=== PATIENT | male | born 1945 | race Caucasian/White ===

== ENCOUNTER 2024-02-08 13:41 | Inpatient (IN) | payer OTHER, SELFPAY ==
[2024-02-07 09:51] VITALS: BMI 24.0
[2024-02-07 10:16] VITALS: BP 154/92
--- NOTE | 2024-02-07 10:16 | ED.GENMED ---
ED Provider Triage
<Harriet Leonard PA-C - Last Filed: 02/07/24 10:30>
-
Patient seen by provider in Triage?: Seen in Triage
78 y/o M
lower back pain x 2 weeks after lifting something heavy
Patient says the pain does not radiate down his legs and is not having any red flag symptoms
went to
got prescription for steroids, sounds diamond dose yonis
took all 6 days and completed 5 days ago
started having some AMS - confusion, mixing up words, repetition, not making sense. He is never had the symptoms before. He has not had any dysuria or frequency or incontinence. Patient does admit to daily alcohol use, usually 3 or 4 glasses of
wine daily
he hsn't had much to drink because he hasn't felt up for it.
no abd pain,fever, vomiting, diarrhea, head injury, liver disesae
pt did have some word confusion and thinks it is march
A medical screening examination has been initiated by a qualified medical provider. Based on the assessment performed at this time, it has been determined that an emergent medical condition may exist and the patient has been informed that further
medical evaluation and possible additional diagnostic testing may be needed.
HPI: This is a medical evaluation conducted in person to initiate diagnostic evaluation and provide initial therapeutics. Please see further documentation by the treating clinician.
GENERAL: Alert , in no apparent distress
ENT: No visible abnormalities
LUNGS: No acute respiratory distress
NEUROLOGICAL: Alert and orientedx2 disoriented to time, ambulatory, no weakness, cranial nerves intact, no weakness
back: nontender
SKIN: Skin intact. No visible changes.
MUSCULOSKELETAL: Moving extremities normally
PSYCH: Normal and appropriate interaction.
alcohol use ,steroid use
low back pain which seems mild
will w/u for AMS
History of Present Illness
<Harriet Leonard PA-C - Last Filed: 02/07/24 10:30>
General
Chief Complaint: Back Pain
Time Seen by Provider: 02/07/24 12:01
<Rosanna Mistry NP - Last Filed: 02/07/24 15:56>
General
Source: patient and spouse
Exam Limitations: none
Nursing documentation reviewed up to this point in time: agreed with
History of Present Illness
History of Present Illness:
78 yo male here for left lower back pain and change in mental state.
L lower back pain started 8 days go, 2 days after carrying boxes of dirt up steps at home. Onset gradual. Worse with movements.
Went to for the back pain and given 6 day taper of Prednisone which he finished 4 days ago.
states he's been confused, saying nonsensical things since being on the Prednisone. ie: He kept telling her he has an appointment with Mikal and she states he doesn't know a Mikal. He does have something coming up with the guys but there is no
Mikal.
She asked him which airline his daughter was flying in on and he states '[place]' she said not what city is she flying into, what airline, again he said [place]. She states he just doesn't seem right.
Pt states he does not feel confused.
He has no weakness, CP, SOB, abd pain, headache, n/v/d/c.
Past History
<Harriet Leonard PA-C - Last Filed: 02/07/24 10:30>
Past History
ED Past Medical History: None
ED Past Surgical History: Tonsilectomy and Other (facial, hernia)
Social History
Tobacco: Non-smoker
Alcohol: Occasional
Drug: None
Personal:
Living: with family
<Rosanna Mistry COMMUNICATION ASSISTANT - Last Filed: 02/07/24 15:56>
Past History
ED Past Medical History: Hypercholesterolemia and Other (chronic dysphagia)
Review of Systems
<Rosanna V. Day, COMMUNICATION ASSISTANT - Last Filed: 02/07/24 15:56>
Review of Systems
Allergies reviewed?: Yes
All Other Systems: ROS reviewed and negative except as documented in HPI and ROS
Constitutional: Denies fever or fatigue
Respiratory: Denies trouble breathing
Cardiac: Denies chest pain
ABD/GI: Denies abdominal pain, nausea, vomiting, diarrhea, constipated or anorexia
: Denies dysuria, frequency or difficulty voiding
Musculoskeletal: Reports back pain (R lower back)
Skin: Reports no symptoms
Neurological: Denies dizzy, headache, weakness or numbness
Phy Exam
<Rosanna Mistry, COMMUNICATION ASSISTANT - Last Filed: 02/07/24 15:56>
Physical Exam
Physical Exam:
GENERAL: No acute distress. A&Ox3.
CONSTITUTIONAL: Afebrile.
EYES: PERRL, conjunctivae normal
Neck: Supple
ENMT: moist mucus membranes, Pharynx nl
RESPIRATORY: Regular respirations, nonlabored, lungs clear.
CARDIOVASCULAR: Regular rate and rhythm, no murmurs, no rubs.
GI: Soft, nontender, normal BS
MUSCULOSKELETAL: Immediately tender over left SI joint with palpation. Same pain with active L SLR but no pain with passive lifting. Moves with ease. Well perfused.
SKIN: Warm, dry, pink
PSYCH: Normal mood and affect. Well kept, interactive and appropriate
NEUROLOGIC: Awake, alert and oriented. Speech clear, CN 2-12 intact. Ambulates with steady gait. Finger to nose intact. No focal neurological deficits
Course
<Harriet Leonard PA-C - Last Filed: 02/07/24 10:30>
Orders/Labs/Results
Orders:
Orders
02/07/24 10:22
Electrocardiogram (*1) Stat
Reason for Study: Other
Other Reason for Exam: neuro symptoms
EKG- Treatment ONCE
02/07/24 10:23
CT Head W/o Iv Contrast Urgent
Comment:
Reason For Exam: ams since taking steroids
02/07/24 10:34
Ammonia Urgent
Complete Blood Count/With Diff Urgent
Comprehensive Metabolic Panel Urgent
Lipase Urgent
TSH Reflex To Free T4 Urgent
Vitamin B12 Urgent
Comment: TSH REFLEX & B12 ADDED ON BY FLOOR 2:30PM 02-07-24
02/07/24 11:31
Urinalysis Reflex To Culture Urgent
Date Specimen was Collected: 02/07/24
Time Specimen was Collected: 11:30
02/07/24 14:33
Add On- LAB Routine
Tests Added?: TSH w/Reflex; Vit B12
Aspirin Chewable [Low Strength Aspirin] 162 mg PO NOW STA
02/07/24 14:35
Admit/Transfer Patient As Directed
Co-Sign Provider:
Level of Care: Observation services
Assign to:: Telemetry
Physician / Group: Aida
Diagnosis: Confusion
Reason for Telemetry: CVA/TIA
Date to Stop Telemetry: 02/10/24
Time to Stop Telemetry: 11:00
PRN Pain Medication Management As Directed
May give lesser potent ordered pain med per pt: Yes
preference::
Protocol:: Medication orders for pain may be administered in a
manner that supports deferring to patient preference
when the pt is:
- Requesting an ordered lesser potent pain medication.
Least to most potent pain medications are defined
as: acetaminophen < NSAID < tramadol < opioids
(morphine, oxycodone, hydromorphone).
- Requesting a lesser dose of the same medication IF
ORDERED.
- Requesting a less intrusive route of administration
if both routes are prescribed by the provider (PO <
IV).
02/07/24 14:44
Code Status As Directed
Resuscitation Status: Do not resuscitate
Reached after discussion with pt or family/Healthcare POA: Yes
DNR Bracelet Application ONCE
02/10/24 11:00
DC Protocol for Telemetry ONCE
Abnormal Lab Results
02/07/24 02/07/24
10:34 11:31
MCH 31.6 H pg
(27.0-31.0)
Absolute Lymphs (auto) 1.1 L 10^3/uL
(1.2-3.4)
Neutrophils % 77.2 H %
(42.2-75.2)
Lymphocytes % 15.5 L %
(20.5-51.1)
Carbon Dioxide 21 L mmol/L
(22-30)
BUN 28 H mg/dl
(9-20)
Glucose 198 H mg/dl
(70-99)
Ammonia < 9 L umol/L
(9-30)
Urine Glucose 1+ A
(Negative)
02/07/24 10:34
02/07/24 10:34
Vital Signs
Initial and Last Documented VS:
Initial Vital Signs
Temp Pulse Resp BP Pulse Ox
98.2 F 86 16 154/92 98
02/07/24 10:16 02/07/24 10:16 02/07/24 10:16 02/07/24 10:16 02/07/24 10:16
Last Documented Vital Signs
Temp Pulse Resp BP Pulse Ox
98.2 F 74 22 133/78 99
02/07/24 10:16 02/07/24 12:00 02/07/24 12:00 02/07/24 12:00 02/07/24 12:00
<Rosanna Mistry, COMMUNICATION ASSISTANT - Last Filed: 02/07/24 15:56>
Orders/Labs/Results
Orders:
Orders
02/07/24 10:22
Electrocardiogram (*1) Stat
Reason for Study: Other
Other Reason for Exam: neuro symptoms
EKG- Treatment ONCE
02/07/24 10:23
CT Head W/o Iv Contrast Urgent
Comment:
Reason For Exam: ams since taking steroids
02/07/24 10:34
Ammonia Urgent
Complete Blood Count/With Diff Urgent
Comprehensive Metabolic Panel Urgent
Lipase Urgent
TSH Reflex To Free T4 Urgent
Vitamin B12 Urgent
Comment: TSH REFLEX & B12 ADDED ON BY FLOOR 2:30PM 02-07-24
02/07/24 11:31
Urinalysis Reflex To Culture Urgent
Date Specimen was Collected: 02/07/24
Time Specimen was Collected: 11:30
02/07/24 14:33
Add On- LAB Routine
Tests Added?: TSH w/Reflex; Vit B12
Aspirin Chewable [Low Strength Aspirin] 162 mg PO NOW STA
02/07/24 14:35
Admit/Transfer Patient As Directed
Co-Sign Provider:
Level of Care: Observation services
Assign to:: Telemetry
Physician / Group: Aida
Diagnosis: Confusion
Reason for Telemetry: CVA/TIA
Date to Stop Telemetry: 02/10/24
Time to Stop Telemetry: 11:00
PRN Pain Medication Management As Directed
May give lesser potent ordered pain med per pt: Yes
preference::
Protocol:: Medication orders for pain may be administered in a
manner that supports deferring to patient preference
when the pt is:
- Requesting an ordered lesser potent pain medication.
Least to most potent pain medications are defined
as: acetaminophen < NSAID < tramadol < opioids
(morphine, oxycodone, hydromorphone).
- Requesting a lesser dose of the same medication IF
ORDERED.
- Requesting a less intrusive route of administration
if both routes are prescribed by the provider (PO <
IV).
02/07/24 14:44
Code Status As Directed
Resuscitation Status: Do not resuscitate
Reached after discussion with pt or family/Healthcare POA: Yes
DNR Bracelet Application ONCE
02/10/24 11:00
DC Protocol for Telemetry ONCE
Abnormal Lab Results
02/07/24 02/07/24
10:34 11:31
MCH 31.6 H pg
(27.0-31.0)
Absolute Lymphs (auto) 1.1 L 10^3/uL
(1.2-3.4)
Neutrophils % 77.2 H %
(42.2-75.2)
Lymphocytes % 15.5 L %
(20.5-51.1)
Carbon Dioxide 21 L mmol/L
(22-30)
BUN 28 H mg/dl
(9-20)
Glucose 198 H mg/dl
(70-99)
Ammonia < 9 L umol/L
(9-30)
Urine Glucose 1+ A
(Negative)
02/07/24 10:34
02/07/24 10:34
Vital Signs
Initial and Last Documented VS:
Initial Vital Signs
Temp Pulse Resp BP Pulse Ox
98.2 F 86 16 154/92 98
02/07/24 10:16 02/07/24 10:16 02/07/24 10:16 02/07/24 10:16 02/07/24 10:16
Last Documented Vital Signs
Temp Pulse Resp BP Pulse Ox
98.2 F 74 22 133/78 99
02/07/24 10:16 02/07/24 12:00 02/07/24 12:00 02/07/24 12:00 02/07/24 12:00
<Rosanna V. Day, COMMUNICATION ASSISTANT - Last Filed: 02/07/24 15:56>
MDM/Problems Addressed
Differential Diagnosis Includes:
Prednisone side effect, Cerebral infarct
MDM/Problems Addressed:
78 yo male here for left lower back pain and change in mental state.
L lower back pain started 8 days go, 2 days after carrying boxes of dirt up steps at home. Onset gradual. Worse with movements.
Went to for the back pain and given 6 day taper of Prednisone which he finished 4 days ago.
states he's been confused, saying nonsensical things since being on the Prednisone. ie: He kept telling her he has an appointment with Mikal and she states he doesn't know a Mikal. He does have something coming up with the guys but there is no
Mikal.
She asked him which airline his daughter was flying in on and he states '[place]' she said not what city is she flying into, what airline, again he said [place]. She states he just doesn't seem right.
Pt states he does not feel confused.
He has no weakness, CP, SOB, abd pain, headache, n/v/d/c.
Afebrile, NAD
Oriented x 3, no focal neuro deficits.
CBC normal CMP with no clinically significant abnormality
Head CT radiology report read: IMPRESSION:
Multiple regions of decreased density as described, the largest in the anterolateral left frontal lobe. The appearance is most suggestive of areas of old infarction. If there are any previous examinations that can be obtained, comparison to those
exams may be helpful.
If further imaging evaluation is desired, particularly for acute infarct, further evaluation with MRI of the brain could be considered.
No evidence for acute intracranial hemorrhage.
U/A neg
13:15
CT result reviewed with pt and . All questions answered. Recommend admit for Neuro eval and MRI.
Both agree.
Hospitalist notified of admission
<Rosanna Mistry, COMMUNICATION ASSISTANT - Last Filed: 02/07/24 15:56>
*Critical Care Note
Total Time (30-74mins, 75-104mins- exclusive of procedures): Not Applicable
ED Attending Note
<Harriet Leonard PA-C - Last Filed: 02/07/24 10:30>
-
Portions of this chart may have been created with voice recognition software.� Occasional wrong word or��sound alike� substitutions may have occurred due to the inherent limitations of voice recognition software.
Discharge Plan
Departure
Patient Disposition: Admit
Date of Disposition: 02/07/24
Time of Disposition: 13:32
Admit to: Med/Surg
Presentation/result/management discussed w/ accepting MD/DO: Hospitalist
Patient with high blood pressure during this ER visit?: No
Condition: Fair
Discharge Problem:
Sacroiliac (ligament) sprain, Altered mental state
Prescriptions:
No Action
atorvastatin 40 mg Tablet
40 mg PO HS
omeprazole 20 mg Capsule,Delayed Release(Dr/Ec)
20 mg PO DAILY
Referrals:
Son Carrillo MD [Family Provider] - Follow up in 10 days
Interventions
Interventions:
*Risk Screen - Suicide Last Done: 02/07/24 10:16
*General Assessment Last Done: 02/07/24 12:03
*Neglect/Abuse Screening Last Done: 02/07/24 10:16
ED- Fall Risk Assessment Last Done: 02/07/24 12:03
*ED COVID-19 Vaccine History Last Done: 02/07/24 12:03
ED-Musculoskeletal Assessment Last Done: 02/07/24 11:27
Discharge Date and Time
Print Language: BELARUSIAN
[2024-02-07 10:40] LABS: % Basophils 0.3 % (0-2); % Eosinophils 0.4 % (0-6); % Immature Granulocytes 0.4 % (0-0.5); % Lymphocytes 15.5 % (20.5-51.1); % Monocytes 6.2 % (1.7-9.3); % Neutrophils 77.2 % (42.2-75.2); Absolute Lymphocytes 1.1 10^3/uL (1.2-3.4); Absolute Monocytes 0.4 10^3/uL (0.1-0.6); Absolute Neutrophils 5.2 10^3/uL (1.4-6.5); Hematocrit 44.9 % (39.0-52.0); Hemoglobin 15.6 g/dL (13.0-18.0); Mean Corp Hgb Conc. 34.7 g/dL (33.0-37.0); Mean Corpuscular Hgb 31.6 pg (27.0-31.0); Mean Corpuscular Volume 90.9 fL (80.0-94.0); Mean Platelet Volume 9.1 fL (7.4-10.4); Nucleated Red Blood Cells % 0 % (-); Platelet Count 263 10^3/uL (130-400); Red Blood Cell Count 4.94 10^6/uL (4.70-6.10); Red Cell Dist. Width 12.8 % (11.5-14.5); White Blood Cell Count 6.8 10^3/uL (4.8-10.8)
[2024-02-07 10:52] LABS: Ammonia < 9 umol/L (9-30)
[2024-02-07 11:01] LABS: ALT (SGPT) 30 U/L (0-50); AST (SGOT) 26 U/L (17-59); Albumin 4.3 g/dl (3.5-5.0); Alkaline Phosphatase 82 U/L (38-126); Blood Urea Nitrogen 28 mg/dl (9-20); Calcium 9.3 mg/dl (8.4-10.2); Carbon Dioxide 21 mmol/L (22-30); Chloride 107 mmol/L (98-107); Glucose 198 mg/dl (70-99); Lipase 41 U/L (23-300); Sodium 139 mmol/L (135-145); Total Protein 7.2 g/dl (6.3-8.2); eGFR > 60.00
[2024-02-07 12:00] VITALS: BP 133/78
[2024-02-07 13:10] LABS: Urine Albumin Trace (Neg - Trace); Urine Bilirubin Negative (Negative); Urine Character Clear (Clear); Urine Color Yellow; Urine Glucose 1+ (Negative); Urine Ketone Negative (Negative); Urine Leukocyte Negative (Negative); Urine Nitrite Negative (Negative); Urine Occult Blood Negative (Negative); Urine Urobilinogen Negative (Neg - 1+)
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
--- NOTE | 2024-02-07 14:25 | W.PN.UPDATE ---
Update Note
Progress Note Update
This is an addendum to H&P written by SOTERO Young
I saw and examined the patient.
The FAREBOX REPAIRER's note was reviewed and I agree with the note.
Comment:
Mr. Jens Yung is a 78 yo man with hx HLD, GERD, recent steroid prescription for low back pain (completed 5 days ago) presents to the ER with confusion, and nonsensical sentences.
Triage VS: T 98.2, P 86, RR 16, BP 154/92, SpO2 98%
On exam patient is awake, AAO x 3 with mild difficulty answering questions. He denies feeling confused. MIKKI, EOMI, no facial asymmetry, 5/5 strength upper and lower extremities
LABS: WBC 6.8, Hg 15.6, PLT 263, Na 139, K+ 4.0, Cl 107, CO2 21, BUN 28, Cr 1.2, Glucose 198
CT Head:
IMPRESSION:
Multiple regions of decreased density as described, the largest in the anterolateral left frontal lobe. The appearance is most suggestive of areas of old infarction. If there are any previous examinations that can be obtained, comparison to those
exams may be helpful.
If further imaging evaluation is desired, particularly for acute infarct, further evaluation with MRI of the brain could be considered.
No evidence for acute intracranial hemorrhage.
Confusion
may be AE 2/2 steroid use versus new stroke
-admit patient to observation
-CVA work-up with MRI/MRA
-start asa
-continue CATERPILLAR DRIVER statin
-PT/OT/ST
GERD
-CATERPILLAR DRIVER PPI
Daily Alcohol Use
-2-3 glasses wine a day
-MSAS protocol
-IV Thiamine (patient states he eats well, not concerned for Wernicke's)
DVT PPx lovenox subQ
[2024-02-07] MEDS: LOW STRENGTH ASPIRIN 162 MG PO (14:39)
[2024-02-07 16:14] LABS: TSH Reflex To Free T4 4.55 uIU/ml (0.47-4.68)
[2024-02-07 16:33] LABS: Vitamin B12 288 pg/ml (239-931)
[2024-02-07 17:00] VITALS: BP 129/78
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
[2024-02-07 19:33] VITALS: BP 123/78
[2024-02-07 20:50] VITALS: BP 178/106; BMI 23.7
[2024-02-07] MEDS: LIDOCAINE 4% PATCH 1 PATCH TOPICAL (20:58)
[2024-02-07] MEDS: LIPITOR 40 MG PO (21:40)
[2024-02-07] MEDS: THIAMINE INJECTION 200 MG IV (22:56)
[2024-02-07 23:30] VITALS: BP 182/84
[2024-02-08] VITALS (8 sets, daily range): BP systolic 162–209; BP diastolic 75–101
--- NOTE | 2024-02-08 03:28 | DOWNTIME ---
There was a [employer] Downtime on 02/08/2024 from 0200 to 02/08/2024 at 0325 . Downtime documentation of patient's care, including medication administrations, has been reconciled in the electronic record per guidelines. Refer to the
patient's paper chart under the miscellaneous tab to see printed paper medication records and downtime forms.
--- NOTE | 2024-02-08 03:57 | PTCARENOTE ---
Pt received on unit approximately 2029. Pt able to walk from stretcher to bed with no concerns. AAOx3 no confusion noted. BP elevated SBP in 180s. AERONAUTICS COMMISSION DIRECTOR made aware. Pt on tele showing sinus tran. Pt oriented to room adn able to make needs known.
[2024-02-08 07:34] LABS: Hematocrit 41.6 % (39.0-52.0); Hemoglobin 14.2 g/dL (13.0-18.0); Mean Corp Hgb Conc. 34.1 g/dL (33.0-37.0); Mean Corpuscular Hgb 31.6 pg (27.0-31.0); Mean Corpuscular Volume 92.7 fL (80.0-94.0); Mean Platelet Volume 9.8 fL (7.4-10.4); Platelet Count 245 10^3/uL (130-400); Red Blood Cell Count 4.49 10^6/uL (4.70-6.10); Red Cell Dist. Width 12.7 % (11.5-14.5); White Blood Cell Count 6.1 10^3/uL (4.8-10.8)
[2024-02-08] MEDS: THIAMINE INJECTION 200 MG IV ×2 (07:47→19:13)
[2024-02-08] MEDS: LIDOCAINE 4% PATCH 1 PATCH TOPICAL (07:47)
[2024-02-08] MEDS: LOW STRENGTH ASPIRIN 81 MG PO (07:48)
[2024-02-08] MEDS: PROTONIX 40 MG PO (07:48)
[2024-02-08] MEDS: VITAMIN B-12 1000 MCG PO (07:48)
[2024-02-08] MEDS: FOLVITE 1 MG PO (07:48)
[2024-02-08 08:02] LABS: Blood Urea Nitrogen 24 mg/dl (9-20); Calcium 8.8 mg/dl (8.4-10.2); Carbon Dioxide 23 mmol/L (22-30); Chloride 109 mmol/L (98-107); Estimated Creatinine Clearance 59 ml/min; Glucose 118 mg/dl (70-99); HDL Cholesterol 50 mg/dl; LDL Cholesterol, Calculated 134 mg/dl; Magnesium 2.3 mg/dl (1.6-2.3); Sodium 139 mmol/L (135-145); Total Cholesterol 205 mg/dl (50-199); Triglyceride 105 mg/dl (10-149); Very Low Density Lipoprotein 21 mg/dl (0-30); eGFR > 60.00
--- NOTE | 2024-02-08 11:00 | W.PN.HOSP.TC ---
Today's Communication/Plan
-
see A/P
Assessment / Plan
Assessment / Plan
HPI: 78 y/o male past medical history of hyperlipidemia and GERD; who presented with back pain and confusion. Patient reports he injured his back about a week ago after lifting some boxes. He was seen at urgent care and started on a coarse of
steroids. Over the weekend, his family noted that he seemed more confused and sometimes wasn't making sense. Examples including putting something metal in the convection oven using the microwave setting, and talking about a meeting with someone they
don't know. Patient denies any similar episodes in the past. He denies any prior history of stroke.
A/P:
# Acute Delirium, possible acute metabolic encephalopathy related to steroids, MS back to baseline AOX3
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
Patient denies prior strokes, and denies any prior brain imaging
UA clean
Started aspirin
Check Brain MRI with Head/Neck MRA
LDL 134
Follow HgbA1c
neuro consulted
# Back Pain, likely muscle strain from lifting boxes
Consult PT/OT
Added Lidocaine Patch
# Hypertension urgency
start amlodipine 2.5 mg
IV hydralazine PRN
Monitor BP
# Hyperlipidemia
LDL 134
Continue atorvastatin
# GERD
Continue Protonix
DVT proph: SCDs
Code Status: DNR
updated on the phone
Anticipated Discharge: Within 24 hours
Subjective/Interval History
-
Date of Service: February 08, 2024
Objective Data
-
Labs:
Laboratory Results
02/08/24
06:32
WBC 6.1
Hgb 14.2
Hct 41.6
Plt Count 245
Sodium 139
Potassium 4.0
Chloride 109 H
Carbon Dioxide 23
BUN 24 H
Creatinine 1.1
Glucose 118 H
Calcium 8.8
Vital Signs:
Vital Signs
Temp Pulse Resp BP Pulse Ox
36.4 C 62 18 182/90 96
02/08/24 07:00 02/08/24 07:00 02/08/24 07:00 02/08/24 07:00 02/08/24 07:00
Review of Systems
-
All other systems: Reviewed and negative
Physical Exam
-
General: Well Developed, Well Nourished, No Apparent Distress, Comfortable and Conversant; Negative Respiratory Distress
HEENT: Normocephalic, Atraumatic, Nose Appears Normal and Ears Appear Normal; Negative Oxygen
Respiratory: Clear to Auscultation and Non Labored Respirations; Negative Accessory Resp Muscle Use
Cardiac: Regular Rhythm and S1/S2
GI: Soft, Nontender, Nondistended and Normal Bowel Sounds
Skin: Warm and Dry
Neuro: Awake, Alert, Oriented and AO x 3
Psych: Calm and Intact Judgement/Insight
Data Reviewed
-
CT Scan: Report Reviewed by me
Labs: Labs Reviewed by me
[2024-02-08 11:15] LABS: Glycohemoglobin (HgbA1c) 6.3 % (4.0-5.6)
[2024-02-08] MEDS: NORVASC 2.5 MG PO (11:34)
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
--- NOTE | 2024-02-08 13:36 | CM ---
Pt seen bedside w/ spouse. Initial assessment completed.
Pt lives w/ spouse in a 2STH- 10 steps to enter w/ landings splitting steps
Pt is independent, denies DME use for ambulation or daily functioning. Has walker but does not use it.
Denies SNF/VN/PT hx
Address, point of contact and insurance verified
PCP: Dr. Son Carrillo
Pharmacy: [facility]
Per PT/OT, no skilled needs likely
Awaiting brain MRI results
Pt admitted in OBS status. VEL[facility] form reviewed, pt given copy. Copy placed in chart.
Spouse had concerns as to why pt is not admitted as IP and requested for hospitalist to follow up w/ her. TT hospitalist, making aware of pt's spouse concerns.
Plan: Home; no needs
[2024-02-08] MEDS: LIPITOR 40 MG PO (21:38)
[2024-02-09 03:44] VITALS: BP 135/74
[2024-02-09 07:32] VITALS: BP 166/82
[2024-02-09] MEDS: FOLVITE 1 MG PO (08:36)
[2024-02-09] MEDS: VITAMIN B-12 1000 MCG PO (08:36)
[2024-02-09] MEDS: LOW STRENGTH ASPIRIN 81 MG PO (08:36)
[2024-02-09] MEDS: THIAMINE INJECTION 200 MG IV ×2 (08:37→19:22)
[2024-02-09] MEDS: NORVASC 2.5 MG PO (08:37)
[2024-02-09] MEDS: PROTONIX 40 MG PO (08:37)
[2024-02-09] MEDS: LIDOCAINE 4% PATCH 1 PATCH TOPICAL (08:38)
--- NOTE | 2024-02-09 10:20 | CM ---
Patient now INP and per physician pending MRI patient possible for discharge. CM will continue to follow for discharge planning needs.
Plan; home with no needs vs home with VN
[2024-02-09 11:18] VITALS: BP 172/90
--- NOTE | 2024-02-09 11:49 | W.PN.HOSP.TC ---
Today's Communication/Plan
-
see A/P
Assessment / Plan
Assessment / Plan
HPI: 78 y/o male past medical history of hyperlipidemia and GERD; who presented with back pain and confusion. Patient reports he injured his back about a week ago after lifting some boxes. He was seen at urgent care and started on a coarse of
steroids. Over the weekend, his family noted that he seemed more confused and sometimes wasn't making sense. Examples including putting something metal in the convection oven using the microwave setting, and talking about a meeting with someone they
don't know. Patient denies any similar episodes in the past. He denies any prior history of stroke.
A/P:
# Acute Delirium, possible acute metabolic encephalopathy 2/2 steroid and acute stroke
# Anterior/inferior left frontal lobe acute infarction
MRI brain noted hyperintense signal within the anterior/inferior left frontal lobe consistent with acute infarction. There is no evidence of hemorrhagic transformation.
Check MRA head and neck
Check echo
MS back to baseline AOX3
UA clean
Cont aspirin, added Plavix
LDL 134, increased Lipitor from 40 to 80 mg, informed about low choles diet
HgbA1c at 6.3%, informed about carb control diet
neuro on board
# Back Pain, likely muscle strain from lifting boxes
PT/OT cleared for HH
Added Lidocaine Patch
MR Lumbar spine without acute fracture, noted degenerative changes and mild canal stenosis
# Hypertension urgency
started amlodipine 2.5 mg
Monitor BP
# Hyperlipidemia
LDL 134
LDL 134, increased Lipitor from 40 to 80 mg
# GERD
Continue Protonix
DVT proph: SCDs
Code Status: DNR
updated at bedside. Answered all questions
total time spent 51 min
Anticipated Discharge: 24 - 48 hours
Subjective/Interval History
-
Date of Service: February 09, 2024
Objective Data
-
Vital Signs:
Vital Signs
Temp Pulse Resp BP Pulse Ox
36.8 C 70 20 172/90 96
02/09/24 11:18 02/09/24 11:18 02/09/24 11:18 02/09/24 11:18 02/09/24 11:18
I&O
02/08/24 02/09/24 02/10/24
06:59 06:59 06:59
Intake Total 960 / 960
Balance 960 / 960
Review of Systems
-
All other systems: Reviewed and negative
Physical Exam
-
General: Well Developed, Well Nourished, No Apparent Distress, Comfortable and Conversant; Negative Respiratory Distress
HEENT: Normocephalic, Atraumatic, Nose Appears Normal and Ears Appear Normal; Negative Oxygen
Respiratory: Clear to Auscultation and Non Labored Respirations; Negative Accessory Resp Muscle Use
Cardiac: Regular Rhythm and S1/S2
GI: Soft, Nontender, Nondistended and Normal Bowel Sounds
Skin: Warm and Dry
Neuro: Awake, Alert, Oriented and AO x 3
Psych: Calm and Intact Judgement/Insight
Data Reviewed
-
CT Scan: Report Reviewed by me
MRI: Report Reviewed by me, Discussed with Physician (neuro) and Discussed with Family
Labs: Labs Reviewed by me
[2024-02-09] MEDS: PLAVIX 75 MG PO (12:50)
[2024-02-09 15:27] VITALS: BP 179/87
--- NOTE | 2024-02-09 16:03 | PTOTSP ---
PARTS DEPARTMENT SUPERVISOR Evaluation
Quick Aphasia Battery Form 1 ([place]) completed. QAB overall = 8.60. Patient with at least mild mixed aphasia with deficits in sentence level auditory comprehension, word finding (semantic and phonemic paraphasias), and oral reading for tasks
assessed. Semantic and phonemic paraphasias/perseverations noted in conversation that patient was not consistently aware of or able to correct. Patient with decreased insight into deficits. Suspect cognitive linguistic impairments. Further
testing and education warranted.
Recommend:
1. Further speech/language/cognitive evaluation warranted at the acute care level.
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
[2024-02-09 20:03] VITALS: BP 168/96
[2024-02-09] MEDS: LIPITOR 80 MG PO (22:26)
[2024-02-09 23:11] VITALS: BP 163/78
[2024-02-10 02:58] VITALS: BP 172/77
[2024-02-10 07:00] VITALS: BP 163/89
[2024-02-10] MEDS: PROTONIX 40 MG PO (07:58)
[2024-02-10] MEDS: LOW STRENGTH ASPIRIN 81 MG PO (07:58)
[2024-02-10] MEDS: THIAMINE INJECTION 200 MG IV (07:59)
[2024-02-10] MEDS: VITAMIN B-12 1000 MCG PO (07:59)
[2024-02-10] MEDS: PLAVIX 75 MG PO (07:59)
[2024-02-10] MEDS: NORVASC 2.5 MG PO (08:00)
[2024-02-10] MEDS: FOLVITE 1 MG PO (08:01)
[2024-02-10] MEDS: LIDOCAINE 4% PATCH 1 PATCH TOPICAL (08:02)
--- NOTE | 2024-02-10 09:05 | CON.CAR ---
Consultation
Consultation Request
Date/Time Consultation Requested: 02/09/24 9:00pm
Date/Time Consultation Performed: 02/10/24 8:15 AM
Requesting Provider: Dr Walker
Performing Provider: Dr Webster
Reason for Consultation: CVA
Medical History
-
Chief Complaint: confusion
History of Present Illness:
78-year-old male with past medical history of hyperlipidemia and GERD presents with confusion and back pains. 1 week ago he injured his back and was started on a course of steroids. He then started noticing some confusion and was using words which
did not make sense. He denied any chest pains, shortness of breath, palpitations, orthopnea, PND, and edema. He was admitted to the hospital and further workup including MRI of the brain revealed acute embolic stroke to the anterior/inferior left
frontal lobe. His mental status improved and he is currently resting comfortable in bed. He denies any further symptoms and is oriented x 3. He was placed on aspirin and Plavix. Transthoracic echo was performed which was unremarkable. We are
asked to evaluate him for possible cardiac source of emboli. He has no fevers or chills. He has no coughing or wheezing.
Past Medical History
Past Medical History: GERD and Hypercholesterolemia
Past Surgical History: None
Social History
Tobacco: Non-Smoker
Alcohol: None
Drug: None
Personal:
Living: With Family
Employment: Retired
Family History
Family History: Hypertension
Allergies / Home Medications
Allergy/AdvReac Type Severity Reaction Status Date / Time
No Known Allergies Allergy Verified 02/07/24 10:20
�Medication �Instructions �Recorded �Confirmed �Type
atorvastatin 40 mg tablet 40 mg PO HS 02/07/24 02/07/24 History
omeprazole 20 mg capsule,delayed 20 mg PO DAILY 02/07/24 02/07/24 History
release
Review of Systems
-
History Source: Patient
Constitutional: No Symptoms
EENT: No Symptoms
Respiratory: No Symptoms
Cardiac: No Symptoms
Abdomen/GI: No Symptoms
: No Symptoms
Musculoskeletal: Muscle Pain
Skin: No Symptoms
Neurological: No Symptoms
Endocrine: No Symptoms
Hematologic/Lymphatic: No Symptoms
Physical Exam
Vital Signs
Temp Pulse Resp BP Pulse Ox
98.0 F 65 18 163/89 96
02/10/24 07:00 02/10/24 07:00 02/10/24 07:00 02/10/24 07:00 02/10/24 07:00
Lab Results
02/08/24 06:32
02/08/24 06:32
Physical Exam
General: Well Developed and Well Nourished
HEENT: Normocephalic and Anicteric
Respiratory: Non Labored Respirations
Cardiac: S1/S2 and Regular Rhythm
GI: Soft, Non Tender and Non Distended
Genito-urinary: No Costovertebral Tender
Musculoskeletal: No Edema
Skin: Warm and Dry
Neuro: AO x 3
Psych: Calm
Impression / Plan
-
Assess:
Acute frontal lobe CVA.
Confusion/change in mental status
Back pains
Hyperlipidemia
GERD
Echo January 2024, EF 56%, mild AI, no clear cardiac source of emboli.
MRI Brain 02/09/24: Restricted diffusion and associated T2/FLAIR hyperintense signal within the anterior/inferior left frontal lobe consistent with acute infarction. There is no evidence of hemorrhagic transformation.
MRA head and neck 02/09/24: short segment of high-grade stenosis in V3 of the left vertebral artery, no significant carotid stenosis
Plan:
He presents with an acute CVA possibly embolic. Transthoracic echo was overall unremarkable.
ekg monitor tech reveals no significant A-fib for now. I would start with a 14-day heart monitor to look for atrial fibrillation further.
At 78 years old, I will hold off on transesophageal echo for now. The likely utility of finding a left atrial appednage thrombus is low. He would not be a candidate for PFO closure based on his age.
Recommend continue aspirin and Plavix for now.
LDL is 134. Continue atorvastatin 80 mg daily.
Will arrange for follow-up after monitor to further discuss management.
Okay for discharge from cardiology.
Data Reviewed
-
EKG: Report Reviewed by me
Radiology: Report Reviewed by me
MRI: Report Reviewed by me
Medical Tests (Nuc Med, Echo etc): Report Reviewed by me
Labs: Labs Reviewed by me
Old Records: Reviewed
--- NOTE | 2024-02-10 10:09 | W.PN.HOSP.TC ---
Addendum entered and electronically signed by Sharron Morataya MD 02/10/24 14:18:
Total DC time 40 minutes
Original Note:
Today's Communication/Plan
-
see A/P
Assessment / Plan
Assessment / Plan
HPI: 78 y/o male past medical history of hyperlipidemia and GERD; who presented with back pain and confusion. Patient reports he injured his back about a week ago after lifting some boxes. He was seen at urgent care and started on a coarse of
steroids. Over the weekend, his family noted that he seemed more confused and sometimes wasn't making sense. Examples including putting something metal in the convection oven using the microwave setting, and talking about a meeting with someone they
don't know. Patient denies any similar episodes in the past. He denies any prior history of stroke.
A/P:
# Acute Delirium, acute metabolic encephalopathy 2/2 steroid and acute stroke (within the anterior/inferior left frontal lobe)
# Anterior/inferior left frontal lobe acute infarction
MRI brain noted hyperintense signal within the anterior/inferior left frontal lobe consistent with acute infarction. There is no evidence of hemorrhagic transformation.
MRA head noted likely mild stenosis within the distal left M1 segment. There is decreased vascular flow related enhancement along the anterior left sylvian fissure/lateral left frontal lobe which may be sequelae of distal vessel high-grade
stenosis/occlusion.
MRA neck noted short segment of high-grade stenosis within the V3 segment of the left vertebral artery.
Neuro felt stroke could be cardioembolic
Echo unrevealing: EF 56%. Normal diastolic function. No intracardiac mass or thrombus formation seen.
Card consulted, recc to start with 14-day heart monitor to look for atrial fibrillation. Can discuss MANDY outpt
Of note, pt's MS back to baseline AOX3
UA clean
Cont aspirin/Plavix 21 days, then ASA after that
LDL 134, increased Lipitor from 40 to 80 mg, informed about low choles diet
HgbA1c at 6.3%, informed about carb control diet
neuro on board
# Back Pain, likely muscle strain from lifting boxes
PT/OT cleared for HH
Added Lidocaine Patch
MR Lumbar spine without acute fracture, noted degenerative changes and mild canal stenosis
# Hypertension urgency
started amlodipine, can increase to 5 mg after discharge (has been on 2.5 during hospital stay)
Monitor BP
# Hyperlipidemia
LDL 134, increased Lipitor from 40 to 80 mg
# GERD
Continue Protonix
DVT proph: SCDs
Code Status: DNR
DW Card
DW on the phone. Answered all questions
Anticipated Discharge: Today
Subjective/Interval History
-
Date of Service: February 10, 2024
Objective Data
-
Vital Signs:
Vital Signs
Temp Pulse Resp BP Pulse Ox
36.7 C 65 18 163/89 96
02/10/24 07:00 02/10/24 07:00 02/10/24 07:00 02/10/24 07:00 02/10/24 07:00
I&O
02/09/24 02/10/24 02/11/24
06:59 06:59 06:59
Intake Total 960 / 960 1080 / 1080
Balance 960 / 960 1080 / 1080
Review of Systems
-
All other systems: Reviewed and negative
Physical Exam
-
General: Well Developed, Well Nourished, No Apparent Distress, Comfortable and Conversant; Negative Respiratory Distress
HEENT: Normocephalic, Atraumatic, Nose Appears Normal and Ears Appear Normal; Negative Oxygen
Respiratory: Clear to Auscultation and Non Labored Respirations; Negative Accessory Resp Muscle Use
Cardiac: Regular Rhythm and S1/S2
GI: Soft, Nontender, Nondistended and Normal Bowel Sounds
Skin: Warm and Dry
Neuro: Awake, Alert, Oriented and AO x 3
Psych: Calm and Intact Judgement/Insight
Data Reviewed
-
CT Scan: Report Reviewed by me
MRI: Report Reviewed by me, Discussed with Physician (neuro) and Discussed with Family
Labs: Labs Reviewed by me
--- NOTE | 2024-02-10 10:27 | PTOTSP ---
SPEECH THERAPY SWALLOW EVALUATION:
Patient exhibits grossly functional oropharyngeal swallow at this time. Patient with dysphagia risk factors of acute CVA and history of GERD. However, pt appears to be tolerating current diet without signs of dysphagia/aspiration at this time.
Recommend continue Regular texture diet, thin liquids. Medications as tolerated. General Aspiration and Reflux precautions. No skilled ST services for swallowing are indicated at this time. Continue ST for expressive/receptive language and cognitive
communication therapy.
RECOMMEND:
1) Regular texture diet, thin liquids
2) Medications as tolerated
3) General Aspiration and Reflux precautions
4) ST to follow for expressive/receptive language and cognitive communication therapy
[2024-02-10 10:32] VITALS: BP 197/94; PULSE 86
[2024-02-10] MEDS: APRESOLINE 10 MG IV (10:52)
[2024-02-10 11:00] VITALS: BP 162/86
[2024-02-10] MEDS: FLUAD (65 yr+) 2024-2025 FORMULA 0.5 ML IM (11:05)
--- NOTE | 2024-02-10 11:53 | CM ---
Chart reviewed and case preparer and liner met with patient and patient is for discharge to home today, patient declines the need for visiting nurses.
Plan; Home today no needs.
--- NOTE | 2024-02-10 13:52 | W.DCSUMMARY ---
Discharge Summary
Discharge Data
Date of Admission: 02/08/24
Date of Discharge: 02/10/24
-
Pending Results: No
Hospital Course
Principal Diagnosis:
Acute Delirium/acute metabolic encephalopathy due to steroid effect and acute stroke (anterior/inferior left frontal acute infarction)
Hypertension urgency
Prediabetes, hemoglobin A1c 6.3%
Back pain, likely from muscle strain from lifting boxes
Chronic Diagnoses:�
Hyperlipidemia
GERD
Consultations:�
Neurology
Cardiology
Procedures:�
None
Clinical course:�
This is a 78-year-old male with past medical history as stated above, who presented with back pain and confusion.
He apparently was lifting heavy boxes and likely injured his lower back as a result of this. He went to the urgent care and was started with a course of steroid for his back pain.
Over the week, he became more confused.
He presented to the emergency room for his confusion.
Problem 1:
Acute Delirium/acute metabolic encephalopathy due to steroid effect and acute stroke (anterior/inferior left frontal acute infarction).
His MRI brain noted hyperintense signal within the anterior/inferior left frontal lobe consistent with acute infarction. There is no evidence of hemorrhagic transformation.
His MRA head noted likely mild stenosis within the distal left M1 segment. There is decreased vascular flow related enhancement along the anterior left sylvian fissure/lateral left frontal lobe which may be sequelae of distal vessel high-grade
stenosis/occlusion.
His MRA neck noted short segment of high-grade stenosis within the V3 segment of the left vertebral artery.
According to neurology, this was felt likely to be cardioembolic.
His echo was unrevealing: EF 56%. Normal diastolic function. No intracardiac mass or thrombus formation seen.
Cardiology was consulted by neuro for MANDY evaluation. Per cardiology, he is high risk for MANDY.
Cardiology will help set up 14-day heart monitor to to assess for atrial fibrillation.
Of note, the patient's mental status has returned to baseline which is AOx3 while in the hospital.
He can continue with dual antiplatelet therapy aspirin and Plavix for 21 days, then aspirin after that.
As part of the stroke workup, his LDL was checked, which was high at 134.
His prior to admission Lipitor was increased from 40 to 80 mg, and he has been informed to continue with low-cholesterol diet going forward.
His HgbA1c was at 6.3%, which is indicative of prediabetes, and the patient has been informed about carb controlled diet.
Problem 2:
Hypertension urgency.
The patient was started with amlodipine this admission, and he can continue at 5 mg after discharge (he had been on 2.5 during hospital stay).
Problem 3:
Back pain, likely muscle strain from lifting boxes.
His MR Lumbar spine was without acute fracture, noted degenerative changes and mild canal stenosis.
As for the rest of his medical problems, they were stable during his hospital stay.
Discharge Plan
-
Patient Disposition: Home with Home Care
Discharge Diagnosis/Procedures: Acute Delirium due to steroid side effect and acute stroke (anterior/inferior left frontal lobe, MRA head noted likely mild stenosis within the distal left M1 segment, MRA neck noted short segment of high-grade
stenosis within the V3 segment of the left vertebral artery);
Mild back pain likely muscle strain from lifting boxes;
Hypertension urgency;
Hyperlipidemia (LDL 134);
Low B12 level (288);
Prediabetes (A1C at 6.3%)
Condition: Fair
Diet: As tolerated, Low Fat, Low Cholesterol and Low Sodium
Activity: As tolerated
Driving Restrictions: Not until seen by your Dr
Blood Work: HgA1C and LDL with PCP in 3 months
Activity Restrictions/Additional Instructions:
Follow up with cardiology for heart monitor to look for atrial fibrillation.
Follow up with your PCP for blood pressure monitor and better control
Referrals:
Keo Samuel MD [Active] - in one to two weeks
Nigel Webster MD [Active] - (The cardiology office will call you on Monday to schedule you to have the monitor placed and to follow up with cardiology team thereafter.)
Son Carrillo MD [Family Provider] - in less than 1 week
Additional Discharge Medication Instructions: Continue aspirin/Plavix for 20 days, then aspirin after that
Take Lipitor 80 mg (LDL at 134)
We have started amlodipine to better control your blood pressure. Continue at 5 mg daily
Prescriptions:
New
atorvastatin 80 mg Tablet
80 mg PO HS Qty: 30 0RF
aspirin 81 mg Tablet,Chewable
81 mg PO DAILY Qty: 30 0RF
clopidogrel 75 mg Tablet
75 mg PO DAILY Qty: 20 0RF
cyanocobalamin (vitamin B-12) 1,000 mcg Tablet
1,000 mcg PO DAILY Qty: 30 0RF
amlodipine [Norvasc] 5 mg tablet
5 mg PO DAILY Qty: 30 0RF
Continued
omeprazole 20 mg Capsule,Delayed Release(Dr/Ec)
20 mg PO DAILY
Discontinued
atorvastatin 40 mg Tablet
40 mg PO HS
Discharge Orders:
Discharge Patient (As Directed); Ordered 02/10/24
Ordered By: Sharron Morataya
Discharge Date and Time
Discharge Date/Time: 02/10/24 12:50
Print Language: [place]
== END 2024-02-10 12:50 | disposition home or self-care (01) | DRG 71 ==
LOC: 4 WEST ACU 13:41
PROVIDERS: Physician Assistant; Physician Assistant Medical; ADMITTING PHYSICIAN Student in an Organized Health Care Education/Training Program; ATTENDING PHYSICIAN Internal Medicine; CONSULT PHYSICIAN Internal Medicine Cardiovascular Disease; CONSULT PHYSICIAN Psychiatry & Neurology Neurology; EMERGENCY PHYSICIAN Student in an Organized Health Care Education/Training Program; FAMILY PHYSICIAN Family Medicine
DX: G93.41 Metabolic encephalopathy (principal); F05 Delirium due to known physiological condition; K21.9 Gastro-esophageal reflux disease without esophagitis; I16.0 Hypertensive urgency; E78.00 Pure hypercholesterolemia, unspecified; Z66 Do not resuscitate
CPT/HCPCS: 70450; 70544; 70548; 70551; 72148; 80048; 80053; 80061; 81003; 82140; 82607; 83036; 83690; 83735; 84443; 85025; 85027; 92523; 92610; 93005; 93306; 93880; 97116; 97129; 97162; 97166; 99285; A9585

== ENCOUNTER 2024-03-22 09:36 | Outpatient (RCR) | payer OTHER, SELFPAY | END 2024-03-22 23:59 | disposition home or self-care (01) | LOC: RST 09:36 | PROVIDERS: ATTENDING PHYSICIAN Nurse Practitioner Adult Health; FAMILY PHYSICIAN Chiropractor | DX: I69.320 Aphasia following cerebral infarction (principal); I69.318 Other symptoms and signs involving cognitive functions following cerebral infarction; I69.328 Other speech and language deficits following cerebral infarction; Z73.6 Limitation of activities due to disability; I69.314 Frontal lobe and executive function deficit following cerebral infarction; I69.310 Attention and concentration deficit following cerebral infarction | CPT/HCPCS: 92507; 92523; 96125; 97167; 97530; 97535 ==

== ENCOUNTER 2024-03-26 13:55 | Inpatient (IN) | payer OTHER, SELFPAY ==
[2024-03-25] VITALS (11 sets, daily range): BP systolic 131–168; BP diastolic 64–93; BMI 23.0
--- NOTE | 2024-03-25 15:07 | ED.GENMED ---
ED Provider Triage
<Niko Rosas PA-C - Last Filed: 03/25/24 15:10>
-
Patient seen by provider in Triage?: Seen in Triage
Attestation: A medical screening examination has been initiated by a qualified medical provider. Based on the assessment performed at this time, it has been determined that an emergent medical condition may exist and the patient has been informed
that further medical evaluation and possible additional diagnostic testing may be needed.
HPI: 78-year-old male with past medical history of recent CVA/TIA presenting to the ER for evaluation of 2 weeks of elevated blood pressures. Patient has been compliant with his antihypertensive regimen but still having elevated blood pressures at
home. Over the last couple of days patient has had some shoulder discomfort and chest discomfort which prompted him to come to the ER today for further evaluation. Patient contacted cardiology office and was also recommended to come to the ER. At
present time patient asymptomatic. Blood pressure of 168/93 in triage. Labs and EKG ordered.
GENERAL: Alert , in no apparent distress
EYE: No visual abnormalities.
NECK: Trachea midline
ENT: No visible abnormalities.
LUNGS: No acute respiratory distress
NEUROLOGICAL: Alert and oriented
SKIN: Skin intact. No visible changes.
MUSCULOSKELETAL: Moving extremities normally
PSYCH: Normal and appropriate interaction.
This is a medical evaluation conducted in person to initiate diagnostic evaluation and provide initial therapeutics. Please see further documentation by the treating clinician.
History of Present Illness
<Niko Rosas PA-C - Last Filed: 03/25/24 15:10>
General
Chief Complaint: Blood Pressure Problem
Time Seen by Provider: 03/25/24 15:27
<Nj Tomlinson DO - Last Filed: 03/25/24 15:30>
History of Present Illness
History of Present Illness:
TIME OF INITIAL ENCOUNTER: 3:30 PM
HPI: The patient comes in due to concerns of high blood pressure readings at home over the last 2 weeks. This is associated with some degree of chest discomfort.
EXAM:
NUMBER AND COMPLEXITY OF PROBLEMS ADDRESSED AT THE ENCOUNTER
� Chronic conditions affecting care:
� Acute Exacerbation and/or Progression of Chronic Illness:
� Differential Diagnosis includes:
AMOUNT AND/OR COMPLEXITY OF DATA TO BE REVIEWED AND ANALYZED
� I performed an independent evaluation of and my interpretation is:
EKG: There is ST elevation in the inferior leads along with reciprocal changes in the septal leads, this is new in comparison to 02/07/2024
CT:
X-rays:
Laboratory Studies:
Other:
� Review of other/old records:
� Clinical information was obtained by an independent historian:
� Prescriptions/Medications Considered but not given:
� Further testing considered but not performed:
RISK OF COMPLICATIONS AND/OR MORBIDITY OR MORTALITY OF PATIENT MANAGEMENT
� Social determinants of health affecting care:
� Discussion with other providers:
� Escalation of care including admission/observation vs risk of discharge considered:
ANY OTHER UPDATES:
Past History
<Niko Rosas PA-C - Last Filed: 03/25/24 15:10>
Past History
ED Past Medical History: Hypercholesterolemia and Other (chronic dysphagia)
ED Past Surgical History: Tonsilectomy and Other (facial, hernia)
Social History
Tobacco: Non-smoker
Alcohol: Occasional
Drug: None
Personal:
Living: with family
Course
<Niko Rosas PA-C - Last Filed: 03/25/24 15:10>
Orders/Labs/Results
Orders:
Orders
03/25/24 15:09
Electrocardiogram (*1) Urgent
Reason for Study: Hypertension, Benign
EKG- Treatment ONCE
Basic Metabolic Panel Urgent
Complete Blood Count/With Diff Urgent
03/25/24 15:10
Troponin I Urgent
03/25/24 15:21
Electrocardiogram (*1) Urgent
Reason for Study: Chest Pain
EKG- Treatment ONCE
Vital Signs
Initial and Last Documented VS:
Initial Vital Signs
Temp Pulse Resp BP Pulse Ox
37.1 C 82 18 168/93 98
03/25/24 15:07 03/25/24 15:07 03/25/24 15:07 03/25/24 15:07 03/25/24 15:07
Last Documented Vital Signs
Temp Pulse Resp BP Pulse Ox
37.1 C 82 18 168/93 98
03/25/24 15:07 03/25/24 15:07 03/25/24 15:07 03/25/24 15:07 03/25/24 15:07
<Nj Tomlinson, DO - Last Filed: 03/25/24 15:30>
Orders/Labs/Results
Orders:
Orders
03/25/24 15:09
Electrocardiogram (*1) Urgent
Reason for Study: Hypertension, Benign
EKG- Treatment ONCE
Basic Metabolic Panel Urgent
Complete Blood Count/With Diff Urgent
03/25/24 15:10
Troponin I Urgent
03/25/24 15:21
Electrocardiogram (*1) Urgent
Reason for Study: Chest Pain
EKG- Treatment ONCE
Vital Signs
Initial and Last Documented VS:
Initial Vital Signs
Temp Pulse Resp BP Pulse Ox
37.1 C 82 18 168/93 98
03/25/24 15:07 03/25/24 15:07 03/25/24 15:07 03/25/24 15:07 03/25/24 15:07
Last Documented Vital Signs
Temp Pulse Resp BP Pulse Ox
37.1 C 82 18 168/93 98
03/25/24 15:07 03/25/24 15:07 03/25/24 15:07 03/25/24 15:07 03/25/24 15:07
ED Attending Note
<Niko Rosas PA-C - Last Filed: 03/25/24 15:10>
-
Portions of this chart may have been created with voice recognition software.� Occasional wrong word or��sound alike� substitutions may have occurred due to the inherent limitations of voice recognition software.
Discharge Plan
Departure
Prescriptions:
No Action
omeprazole 20 mg Capsule,Delayed Release(Dr/Ec)
20 mg PO DAILY
atorvastatin 80 mg Tablet
80 mg PO HS Qty: 30 0RF
aspirin 81 mg Tablet,Chewable
81 mg PO DAILY Qty: 30 0RF
clopidogrel 75 mg Tablet
75 mg PO DAILY Qty: 20 0RF
cyanocobalamin (vitamin B-12) 1,000 mcg Tablet
1,000 mcg PO DAILY Qty: 30 0RF
amlodipine [Norvasc] 5 mg tablet
5 mg PO DAILY Qty: 30 0RF
Interventions
Interventions:
*General Assessment Last Done: 03/25/24 15:07
Discharge Date and Time
Print Language: WELSH
--- NOTE | 2024-03-25 15:47 | ED.GENMED ---
History of Present Illness
General
Chief Complaint: Blood Pressure Problem
Source: patient and records
Exam Limitations: none
Time Seen by Provider: 03/25/24 15:27
Nursing documentation reviewed up to this point in time: agreed with
History of Present Illness
History of Present Illness:
78-year-old male with a past medical history of stroke presents to the emergency room for evaluation after an episode of chest pain yesterday. Patient reports that for the past month or so he has had intermittent chest pain he says is typically
transient and resolves without much intervention. He says that yesterday in the late afternoon he had an episode that was more intense and lasted longer. He reports a pressure sensation in the chest and shoulders. He says that after an hour or so
the pain improved but he still felt 'not quite right' in the chest most of the night until around 4 AM when his symptoms essentially resolved and he was able to get to sleep. He says he woke up this morning and he has been feeling generally well
but he checked his blood pressure and it was elevated and after discussion with his they decided that he should be evaluated in the ER after yesterday's episode. He denies any associated shortness of breath, nausea, vomiting, diaphoresis,
syncope. No swelling or pain in the legs. He denies any other complaints. He says he has seen cardiology (Dr. Reynolds) mostly for medical screening after his stroke in January; he says that he has some residual memory issues from stroke but
denies any other significant deficits.
Past History
Past History
ED Past Medical History: Hypercholesterolemia and Other (chronic dysphagia)
ED Past Surgical History: Tonsilectomy and Other (facial, hernia)
Social History
Tobacco: Non-smoker
Alcohol: Occasional
Drug: None
Personal:
Living: with family
Review of Systems
Review of Systems
All Other Systems: ROS reviewed and negative except as documented in HPI and ROS
Constitutional: Denies fever or chills
Respiratory: Denies trouble breathing
Cardiac: Reports chest pain; Denies diaphoresis, palpitations or syncope
ABD/GI: Denies abdominal pain, nausea or vomiting
: Denies flank pain
Musculoskeletal: Denies edema
Neurological: Denies dizzy or headache
Phy Exam
Physical Exam
Physical Exam:
General: Awake, alert, oriented x3; no acute distress
Head: Normocephalic, atraumatic
Eyes: Conjunctiva normal
Throat: Airway intact, handling secretions
Neck: Trachea midline, no JVD noted
Lungs: Clear to auscultation bilaterally, no wheezing, rales, rhonchi
Heart: Regular rate and rhythm, no murmurs, gallops, or rubs
Abd: Soft, non distended, nontender
Neuro: No gross deficits
Skin: no rash
Extremities: No edema in extremities, equal pulses in all extremities
Scores
Heart Failure Risk
Heart Failure Risk Score: Not Applicable
Heart Score for Chest Pain Patients
STEMI patient?: Yes
Withdrawal Assessment of Alcohol
Withdrawal Assessment Completed?: Not applicable
Course
Orders/Labs/Results
Orders:
Orders
03/25/24 15:09
Electrocardiogram (*1) Urgent
Reason for Study: Hypertension, Benign
EKG- Treatment ONCE
03/25/24 15:21
Electrocardiogram (*1) Urgent
Reason for Study: Chest Pain
EKG- Treatment ONCE
03/25/24 15:35
Basic Metabolic Panel Urgent
Complete Blood Count/With Diff Urgent
PTT Urgent
Troponin I Urgent
03/25/24 15:46
Echo Follow up Study W Dop Urgent
Reason for Study: chest pain
Cardiology Consult: Pedro Pablo Pena
03/25/24 15:47
CARDIOLOGY CONSULT Urgent
Consulting Provider: Pedro Pablo Pena
Was physician already notified: Yes
03/25/24 16:17
Aspirin Chewable [Low Strength Aspirin] 324 mg PO NOW STA
03/25/24 16:18
Heparin 4,000 units IV NOW STA
Pharmacy Request to Place See Dose Instructions PO NOW STA
Discontinue all Active Warfarin orders?: Yes
Nursing to Place Non Medication Order As Directed
Physician Order: PTT 6 hours after initial start of Heparin infusion
03/25/24 16:29
Heparin 1000 Units/500 ml [Heparin] 1,000 units in 500 ml .ROUTE .STK-MED
Heparin Sodium,Porcine/Ns/Pf [Heparin 2000 Units/1000 ml] 2,000 unit in 1,000 ml .ROUTE .STK-MED
Lidocaine HCl/Pf [Xylocaine-Mpf 1% Vial] 50 mg .ROUTE .STK-MED ONE
Nitroglycerin [Tridil] 1,500 mcg .ROUTE .STK-MED ONE
Verapamil Injectable [Isoptin/Verapamil Injection] 5 mg .ROUTE .STK-MED ONE
03/25/24 16:30
Heparin 56312 Units/250 ml 25,000 units in 250 ml IV PER PROTOCOL
Weight to be used for heparin protocol in kilograms (kg):: 76.9
Protocol:: Cardiac Tx/Acute Coronary
PTT Goal Range to be used:: PTT 73 to 111 seconds
Order type:: Initial
INITIAL Infusion Dose (UNITS/KG/hr) & then follow protocol:: 12 units/kg/hr
Infusion Dose in UNITS/hr & then follow protocol (UNITS/hr):: 900
INFUSION RATE in mL/hr & then follow protocol (mL/hr):: 9
PTT less than or equal to 64 seconds:: Increase rate by 200 units/hr (+ 2 mL/hr)
PTT 64.1 to 72.9 seconds:: Increase rate by 100 units/hr (+ 1 mL/hr)
PTT 73 to 111 seconds:: Target Range. No change in rate.
PTT 111.1 to 130.9 seconds:: Decrease rate by 100 units/hr (- 1 mL/hr)
PTT 131 to 199.9 seconds:: HOLD for 1 hr. Then decrease rate by 200 units/hr (- 2 mL/hr)
PTT greater than or equal to 200 seconds:: HOLD for 2 hrs & Notify Provider. Then decrease by 200 units/hr (-
2 mL/hr)
Lab follow-up:: Each change, PTT q6h until 2 consecutive are therapeutic. Then PTT
daily.
03/25/24 16:36
Fentanyl Citrate/Pf [Sublimaze] 100 mcg .ROUTE .STK-MED ONE
Heparin 10,000 units .ROUTE .STK-MED ONE
Midazolam HCl [Versed] 2 mg .ROUTE .STK-MED ONE
03/25/24 17:[address] See Dose Instructions IV DIRECTED
Abnormal Lab Results
03/25/24
15:35
WBC 11.3 H 10^3/uL
(4.8-10.8)
RBC 4.61 L 10^6/uL
(4.70-6.10)
MCH 31.2 H pg
(27.0-31.0)
Absolute Neuts (auto) 8.8 H 10^3/uL
(1.4-6.5)
Absolute Monos (auto) 1.0 H 10^3/uL
(0.1-0.6)
Neutrophils % 77.9 H %
(42.2-75.2)
Lymphocytes % 12.6 L %
(20.5-51.1)
Glucose 143 H mg/dl
(70-99)
Troponin I 43.400 H* ng/ml
03/25/24 15:35
03/25/24 15:35
Vital Signs
Initial and Last Documented VS:
Initial Vital Signs
Temp Pulse Resp BP Pulse Ox
37.1 C 82 18 168/93 98
03/25/24 15:07 03/25/24 15:07 03/25/24 15:07 03/25/24 15:07 03/25/24 15:07
Last Documented Vital Signs
Temp Pulse Resp BP Pulse Ox
37.1 C 73 22 151/80 97
03/25/24 15:07 03/25/24 16:30 03/25/24 16:30 03/25/24 16:00 03/25/24 16:15
MDM/Problems Addressed
Differential Diagnosis Includes:
ACS/acute TX, pericarditis, GERD/esophagitis, costochondritis
MDM/Problems Addressed:
78-year-old male presents for evaluation of chest pain�he says he had a few episodes over the past month and then had a more intense episode last night that was prolonged for a few hours. He is currently asymptomatic. Blood pressure marginally
elevated 159/84 rest of vitals normal. Physical exam as above. His initial EKG was concerning for some new inferior ischemic changes�patient was immediately brought back to a room repeat EKG concerning for possible STEMI. He is however chest
pain-free. Performed serial EKGs and these were sent to interventional cardiology and case was discussed at bedside with interventional cardiology�concern at this point that this is a completed infarct. Will plan for stat echocardiogram. Usual
lab work sent off. Plan likely for cardiac cath today but will hold on immediate cath.
Patient's labs reviewed and CBC shows marginal leukocytosis, CMP unremarkable, troponin markedly elevated to 43�discussed once again at bedside with interventional cardiology�they will plan to take for cardiac catheterization now; suspect that this
is completed STEMI given patient asymptomatic with significant troponin elevation and Q waves on EKG. We did give aspirin, heparin here in the ER.
*Pulse Oximetry
Patient hypoxic: no
*EKG
Interpreted by ED Provider?: Yes
Heart Rate: 79
Rate: normal
Rhythm: sinus
[place]: normal axis
Interval: normal interval
Ischemia: ST elevation
*Critical Care Note
Total Time (30-74mins, 75-104mins- exclusive of procedures): Not Applicable
Data Reviewed
Review of Other/Old Records Reveals: Labs and Records
Source: patient and records
Patient Management
Discussion with other providers: Hospitalist (Discussed with hospitalist) and Production Officer (Discussed with lead applier, discussed with general cardiology as well)
Escalation/DeEscalation of care consider admission/obs:
Admission indicated
ED Attending Note
-
Portions of this chart may have been created with voice recognition software.� Occasional wrong word or��sound alike� substitutions may have occurred due to the inherent limitations of voice recognition software.
Discharge Plan
Departure
Patient Disposition: MANAGER VEHICLE
Date of Disposition: 03/25/24
Time of Disposition: 16:21
Admit to doctor: Sunil
Presentation/result/management discussed w/ accepting MD/DO: Hospitalist
Discharge Problem:
Acute myocardial infarction
Prescriptions:
No Action
omeprazole 20 mg Capsule,Delayed Release(Dr/Ec)
20 mg PO DAILY
atorvastatin 80 mg tablet
80 mg PO HS
cyanocobalamin (vitamin B-12) 1,000 mcg tablet
1,000 mcg PO DAILY
amlodipine [Norvasc] 5 mg tablet
5 mg PO DAILY
aspirin 81 mg tablet,chewable
81 mg PO DAILY
Interventions
Interventions:
*General Assessment Last Done: 03/25/24 15:07
ED- Fall Risk Assessment Last Done: 03/25/24 15:40
*ED COVID-19 Vaccine History Last Done: 03/25/24 15:38
ED- Cardiac Assessment Last Done: 03/25/24 15:39
ED- Neurological Assessment Last Done: 03/25/24 15:39
ED- Pulmonary Assessment Last Done: 03/25/24 15:39
Discharge Date and Time
Print Language: CROATIAN
[2024-03-25 15:53] LABS: % Basophils 0.2 % (0-2); % Eosinophils 0.1 % (0-6); % Immature Granulocytes 0.4 % (0-0.5); % Lymphocytes 12.6 % (20.5-51.1); % Monocytes 8.8 % (1.7-9.3); % Neutrophils 77.9 % (42.2-75.2); Absolute Lymphocytes 1.4 10^3/uL (1.2-3.4); Absolute Neutrophils 8.8 10^3/uL (1.4-6.5); Hematocrit 40.9 % (39.0-52.0); Hemoglobin 14.4 g/dL (13.0-18.0); Mean Corp Hgb Conc. 35.2 g/dL (33.0-37.0); Mean Corpuscular Hgb 31.2 pg (27.0-31.0); Mean Corpuscular Volume 88.7 fL (80.0-94.0); Mean Platelet Volume 9.9 fL (7.4-10.4); Nucleated Red Blood Cells % 0 % (-); Platelet Count 275 10^3/uL (130-400); Red Blood Cell Count 4.61 10^6/uL (4.70-6.10); Red Cell Dist. Width 12.6 % (11.5-14.5); White Blood Cell Count 11.3 10^3/uL (4.8-10.8)
[2024-03-25 16:03] LABS: Blood Urea Nitrogen 18 mg/dl (9-20); Calcium 9.2 mg/dl (8.4-10.2); Carbon Dioxide 25 mmol/L (22-30); Chloride 102 mmol/L (98-107); Estimated Creatinine Clearance 64 ml/min; Glucose 143 mg/dl (70-99); Potassium 3.5 mmol/L (3.5-5.1); Sodium 136 mmol/L (135-145); eGFR > 60.00
[2024-03-25 16:05] LABS: APTT 32.8 Sec (23.4-35.0)
[2024-03-25] MEDS: LOW STRENGTH ASPIRIN 324 MG PO (16:21)
[2024-03-25] MEDS: HEPARIN 4000 UNITS IV (16:22)
--- NOTE | 2024-03-25 16:40 | CON.CAR ---
Consultation
Consultation Request
Date/Time Consultation Requested: 03/25/2024; 15:31
Date/Time Consultation Performed: 03/25/2024; 15:38
Requesting Provider: Ward Ashraf Jr., M.D.
Performing Provider: Pedro Pablo Pena D.O.
Reason for Consultation: ST elevation on EKG.
Medical History
-
Chief Complaint: Chest pain yesterday, now resolved.
History of Present Illness:
78 y/o male with HTN, HLD, GERD and glucose intolerance, recently admitted with an anterior/inferior left frontal lobe CVA, now presenting with chest pain that has abated. The patient was in his normal state of health, but describes chest
pain/pressure which has been plaguing him intermittently for the past month. Yesterday afternoon, the pain re-appeared and became constant. He could not identify a specific exacerbating or relieving aspect. He denied associated shortness in
breath, nausea, radiation to the arms/jaw, palpitations syncope or presyncope. The pain kept him awake until around 4AM, when the pain finally abated and he was able to get to sleep. This morning, he awoke and proceeded through his normal routine.
He met with his convention manager this morning. His is (was) scheduled to visit a friend in [place], [place] tomorrow morning. In an abundance of caution, they elected to have the pain evaluated in the ER.
In ER, EKG showed prominent ST elevations with Q waves in the inferior limb leads with notable depressions with tall R waves in the anteroseptal precordial leads. The patient is entirely symptom free at this time. He reports feeling absolutely
no different than any other day. Echocardiogram confirms inferior and inferolateral hypokinesis. Initial troponin is 43.
Past Medical History
Past Medical History: CVA, HTN and Hypercholesterolemia
Past Surgical History: None
Social History
Tobacco: Non-Smoker
Alcohol: Occasional
Drug: None
Personal:
Living: With Family
Employment: Retired
Family History
Family History: Reviewed & Not Pertinent
Allergies / Home Medications
Allergy/AdvReac Type Severity Reaction Status Date / Time
No Known Allergies Allergy Verified 03/25/24 15:07
�Medication �Instructions �Recorded �Confirmed �Type
omeprazole 20 mg capsule,delayed 20 mg PO DAILY Gastrointestinal 02/07/24 03/25/24 History
release Issue
amlodipine 5 mg tablet (Norvasc) 5 mg PO DAILY Blood Pressure 03/25/24 03/25/24 History
aspirin 81 mg chewable tablet 81 mg PO DAILY Blood Clot 03/25/24 03/25/24 History
Prevention/Tx
atorvastatin 80 mg tablet 80 mg PO HS High Cholesterol 03/25/24 03/25/24 History
cyanocobalamin (vitamin B-12) 1,000 mcg PO DAILY Supplement 03/25/24 03/25/24 History
1,000 mcg tablet
Review of Systems
-
History Source: Patient and Family
Constitutional: No Symptoms
EENT: No Symptoms
Respiratory: No Symptoms
Cardiac: Chest Pain (Now resolved.)
Abdomen/GI: No Symptoms
: No Symptoms
Musculoskeletal: No Symptoms
Physical Exam
Vital Signs
Temp Pulse Resp BP Pulse Ox
37.1 C 73 22 151/80 97
03/25/24 15:07 03/25/24 16:30 03/25/24 16:30 03/25/24 16:00 03/25/24 16:15
Lab Results
03/25/24 15:35
03/25/24 15:35
Troponin I 43.400 ng/ml H* 03/25/24 15:35
Physical Exam
General: Well Developed, Well Nourished, No Apparent Distress, Comfortable and Good Appetite
HEENT: Normocephalic, Anicteric and Moist Mucous Membranes
Respiratory: Clear
Cardiac: S1/S2 and Regular Rhythm
Breast: Deferred by me
GI: Soft, Non Tender, Non Distended and Normal Bowel Sounds
Rectal: Deferred by Provider
Musculoskeletal: No Clubbing, No Cyanosis and No Edema
Skin: Warm and Dry
Neuro: AO x 3
Hematologic/Lymphatic: No Lymphadenopathy
Psych: Calm
Impression / Plan
-
Impression/Plan: 78 y/o male with HTN, HLD, glucose intolerance and CVA in 01/2024 admitted with likely completed inferior PA.
#PA/ACS with delayed presentation
-Acute, but now chest pain free for ~12 hours.
-EKG shows MAGDALENA and echo confirms inferolateral/inferior hypokinesis.
-Urgent coronary angiography to clarify coronary anatomy. I suspect that there will be an occlusion of the RCA or dominant LCx with high threshold for revascularization (OAT Trial).
-ASA/Heparin bolus given in ER.
-DAPT held prior to angiography.
-Add metoprolol 25 mg daily.
#HTN
-Chronic, stable.
-Continue amlodipine.
-We will add beta fanta.
#HLD
-Chronic, stable.
-Lipid panel as of 02/08/2024: Total cholesterol = 205, LDL = 134, HDL = 50, Triglycerides = 105.
-Continue atorvastatin 80 mg daily.
-Goal LDL < 55.
#CVA
-Chronic, January 2024.
-Currently asymptomatic.
-Risk factor modification.
#Dispo
-Admit to IVU via Hospitalist service.
Data Reviewed
-
EKG: Tracing Personally Visualized and interpreted and Report Reviewed by me
Radiology: Image Personally Visualized and interpreted and Report Reviewed by me
CT Scan: Report Reviewed by me
MRI: Report Reviewed by me
Medical Tests (Nuc Med, Echo etc): Image Personally Visualized and interpreted, Report Reviewed by me and Discussed with Physician
Labs: Labs Reviewed by me, Discussed with Physician, Discussed with Nurse, Discussed with Patient and Discussed with Family
Old Records: Reviewed
[2024-03-25 17:22] LABS: ACT-LR - POC 294 Seconds (116-155)
--- NOTE | 2024-03-25 17:40 | ITS.CL.ANGIO ---
Certified Procedural Coder - Angioplasty
Angioplasty
Procedure Report:
CARDIAC CATHETERIZATION REPORT
Date of Procedure: 03/25/2024
Referring: Ward Ashraf Jr., M.D.
INDICATION: Delayed presentation, inferior ST elevation myocardial infarction.
PROCEDURE:
1. Left heart catheterization
2. Coronary angiography
3. Successful PCI of the proximal RCA.
A total of 43 minutes of procedural/moderate sedation was utilized. An independent medical social consultant was present to assist with and help manage the patient's level of consciousness and physiologic status.
ACCESS:
1. 6 Egyptian right rate artery using a modified Seldinger technique.
CATHETERS:
1. 5 Egyptian JR4.
2. 5 Egyptian JL 3.5.
3. 6 Egyptian JR4 guiding catheter.
HEMODYNAMIC DATA
Weight (kg): 76.7
AO (s/d/x, mmHg): 136/82/107
LV (s/x mmHg): 137/14
LEFT VENTRICULOGRAPHY: Not performed.
CORONARY ANGIOGRAPHY
Dominance: Right.
Left Main: Normal size, trifurcating vessel. There is a 70% tapering of the distal left main coronary artery.
LAD: Large size vessel giving rise to 1 large diagonal before wrapping around the apex. There is a 30% lesion in the distal vessel.
[place]amus: Medium size vessel supplying the proximal anterolateral wall. There are tandem 70% lesions in the proximal margin.
Circumflex: Diminutive, nondominant vessel giving rise to 2 small obtuse marginals. There is a 90% lesion in OM1 (a 1.5 mm vessel).
RCA: Enormous, dominant vessel with a large posterolateral arcade that is essentially functioning as the circumflex. There is a critical, 90% lesion in the proximal vessel with KEL-3 flow. There is a 60% lesion in the right posterolateral
branch as it exits the AV groove and supplies the inferolateral wall. There are multiple, tandem 40% lesions in the mid RPDA.
INTERVENTION(S)
1. Successful PCI of the 90% proximal RCA lesion ([employer] [place] 4.0 x 15 GREG, postdilated with a 4.0 NC balloon) with reduction in stenosis to 0%, maintaining KEL-3 flow.
Narrative:
The decision was made to proceed with percutaneous coronary intervention. The diagnostic catheter was removed over a wire and a 6Fr JR4 guiding catheter was advanced to the aortic root and seated in the RCA. Additional heparin was given and a Power
Turn Flex wire was advanced into the distal RPL. The 90% proximal RCA lesion was predilated with a 2.0 x 12 semi-compliant balloon to 12 rajendra. The semi-compliant balloon was removed and a Medtronic [place] 4.0 x 15 drug-eluting stent was
advanced. The stent was deployed at 12 atmospheres. The stent balloon was removed. A 4.0 x 12 noncompliant balloon was advanced into the stent and the stent was postdilated to 14 atmospheres. Angiography was performed in orthogonal views, confirming
good stent expansion and an excellent angiographic result. The coronary wire was withdrawn and the guide was disengaged from the artery. The catheter was removed over a standard J-wire.
Closure Device: Vascular band.
Radiation (mGy): 514.58
DAP (cm2.Gy): 32.0577
Fluoroscopy time (minutes): 6.3
CONCLUSIONS
1. Right dominant circulation with a 70% tapering lesion of the distal left main coronary artery, a 30% lesion in the distal LAD, and medium size ramus with tandem 70% lesions in the proximal margin, a 90% lesion in a 1.5 mm OM1 and an enormous,
dominant right coronary artery with a large posterolateral arcade that essentially functions as the circumflex with 40% lesions in the mid RPDA, a 60% lesion in the right posterolateral branch and a critical, 90% culprit lesion in the proximal RCA,
status post successful PCI ([employer] [place] 4.0 x 15 GREG, postdilated with a 4.0 NC balloon) with reduction in stenosis to 0%, maintaining KEL-3 flow.
2. Normal filling pressures (LVEDP = 14 mmHg at 76.7 kg).
RECOMMENDATIONS:
1. Expectant management after cardiac catheterization via right radial approach.
2. Limited weight bearing on the right for one week.
3. Dual antiplatelet therapy with aspirin and ticagrelor for at least 12 months, followed by aspirin indefinitely.
4. Discussion with CT surgery regarding optimal revascularization strategy of residual coronary artery disease, specifically the 70% distal left main tapering. Options will include delayed bypass surgery in 30 days versus provisional left main
into LAD PCI given diminutive size of circumflex.
5. Aggressive secondary risk factor modification with high-dose, high potency statin.
6. Guideline directed medical therapy as hemodynamics will tolerate.
7. Repeat echocardiogram in 90 days.
8. Referral to cardiac rehab.
Copy to: Luis F Godoy D.O., Pedro Pablo Reynolds M.D., Son Carrillo M.D.
Pedro Pablo Pena DO, FACC, FACP
--- NOTE | 2024-03-25 17:45 | CONSULT.CT ---
Consultation
-
Date/Time Consultation Requested: 03/25 1744
Date/Time Consultation Performed: 03/25 1744
Requesting Provider: Yamile BIANCHI/ August MUIR
Performing Provider: Amy BIANCHI for Tono MUIR
Reason for Consultation: MVD/ CABG eval
Patient History
Physicians
Family Physician: Gerardo
Outpatient Worsted Winder: Quin
Inpatient Worsted Winder: Markus Pena/ Rodolfo
History of Present Illness
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
presents to [facility] with complaints of chest pain. Patient has been complaining of chest pressure intermittently for the past month however yesterday afternoon the pain reappeared and became constant and the pain kept him awake until 4
AM where he finally subsided and he was able to fall asleep. Patient did not note that the pain was triggered by any particular activity.
This morning patient was able to wake up and proceed through his normal routine however since his was about to leave the area they elected to come to the ER for evaluation. Upon evaluation in the emergency room patient's EKG showed ST
elevations and Q waves in the inferior limb leads however he was chest pain-free at that time. A troponin was assessed and it was 43 and echocardiogram did show inferior/inferior lateral hypokinesis. Patient was eventually taken to the cardiac
Horologist Apprentice in which multivessel disease was found and CT surgery was consulted for surgical evaluation.
Of note, patient's echocardiogram today compared the one preformed in January does show new wall motion abnormalities and a low normal EF.
Past Medical History
Past Medical History: CAD, CVA/TIA, GERD, HTN and Hypercholesterolemia
Past Surgical History
Past Surgical History: Other (hernia repair)
Dental History
Follows dentist regularly
Family History
Mother: at Age (85)
Father: at Age (90s from CVA)
Social History
Alcohol: Daily
Drug: None
Tobacco: Non-Smoker
Personal:
Living: With Spouse
Employment: Not Employed
Allergies
Allergy/AdvReac Type Severity Reaction Status Date / Time
No Known Allergies Allergy Verified 03/25/24 15:07
Home Medications
�Medication �Instructions �Recorded �Confirmed �Type
omeprazole 20 mg capsule,delayed 20 mg PO DAILY Gastrointestinal 02/07/24 03/25/24 History
release Issue
amlodipine 5 mg tablet (Norvasc) 5 mg PO DAILY Blood Pressure 03/25/24 03/25/24 History
aspirin 81 mg chewable tablet 81 mg PO DAILY Blood Clot 03/25/24 03/25/24 History
Prevention/Tx
atorvastatin 80 mg tablet 80 mg PO HS High Cholesterol 03/25/24 03/25/24 History
cyanocobalamin (vitamin B-12) 1,000 mcg PO DAILY Supplement 03/25/24 03/25/24 History
1,000 mcg tablet
Review of Systems
-
Unable to obtain full review of systems at this time due to: Other (recent cva)
History Source: Patient and Family
General: Reports Sleep Disturbance
Cardiac: Reports Chest Pain
Physical Exam
Vital Signs
Temp 98.7 F 03/25/24 15:07
Temp route: Oral 03/25/24 15:07
Pulse 73 03/25/24 16:30
Resp Rate 22 03/25/24 16:30
Blood pressure 151/80 03/25/24 16:00
Blood pressure extremity used: Right upper arm 03/25/24 15:07
Position: Sitting 03/25/24 15:07
MAP (cuff-Tim Monitor) 99 03/25/24 16:00
SaO2 97 03/25/24 16:15
Oxygen Mode of Delivery Room air 03/25/24 15:39
Can the patient verbally communicate their pain? Yes 03/25/24 15:07
Actual Weight 76.9 kg 03/25/24 15:22
Body Mass Index (BMI) 23.0 03/25/24 15:22
Labs
03/25/24 15:35
03/25/24 15:35
APTT 32.8 Sec (23.4-35.0) 03/25/24 15:35
Troponin I 43.400 ng/ml H* 03/25/24 15:35
Diagnostic Studies
03/25 LHC
CORONARY ANGIOGRAPHY
Dominance: Right.
Left Main: Normal size, trifurcating vessel. There is a 70% tapering of the distal left main coronary artery.
LAD: Large size vessel giving rise to 1 large diagonal before wrapping around the apex. There is a 30% lesion in the distal vessel.
Ramus:Medium size vessel supplying the proximal anterolateral wall. There are tandem 70% lesions in the proximal margin.
Circumflex: Diminutive, nondominant vessel giving rise to 2 small obtuse marginals. There is a 90% lesion in OM1 (a 1.5 mm vessel).
RCA: Enormous, dominant vessel with a large posterolateral arcade that is essentially functioning as the circumflex. There is a critical, 90% lesion in the proximal vessel with KEL-3 flow. There is a 60% lesion in the right posterolateral branch
as it exits the AV groove and supplies the inferolateral wall. There are multiple, tandem 40% lesions in the mid RPDA.
03/25 TTE
CONCLUSIONS
Normal LV size with low normal systolic function.
LVEF is 50-55% by visual estimation.
Inferior and inferolateral [id number].
Normal right ventricular size and function.
No significant valvular disease.
Compared to prior from February 09, 2024, LVEF is now low normal, previously
normal, and there are new wall motion abnormalities as described above.
Exam
General: Well Developed and Well Nourished
HEENT: Normocephalic
Respiratory: Clear
Cardiac: S1/S2
GI: Soft and Non Distended
Rectal: Deferred by Provider
Skin: Warm and Dry
Neuro: AO x 3
Lymph: No Lymphadenopathy
Psych: Calm
Assessment / Plan
-
78-year-old male with past medical history listed above presents to [facility] with complaints of chest pain and EKG was found to have ST elevations. He was taken to the cardiac Horologist Apprentice in which multivessel disease was found. He received
a drug-eluting stent to the proximal RCA and CT surgery was consulted for remaining vessel revascularization.
#CAD
-Routine preoperative cardiothoracic surgery orders will be initiated
-STS risk stratification score will be calculated after preoperative testing is complete
-Since patient received a stent to the RCA; surgery will be delayed for 30 days
-Patient's was at bedside in which most of this information was obtained and patient's revascularization strategy will be discussed with the multidisciplinary team. If surgery is decided, further details regarding surgical timing intervention
will be determined after attending physicians full evaluation
--- NOTE | 2024-03-25 18:29 | PTCARENOTE ---
received pt from the [facility] into 2262. Sinus rhythm on tele, VSS, + peripheral pulses, no edema noted. Pt denies CP or SOB. TR band in place to right wrist. PIV to right arm flushes easily. Pt and oriented to room and safety precautions, questions
encouraged.
--- NOTE | 2024-03-25 19:49 | PTCARENOTE ---
Recieved patient from RN @1900. Patient lying comfortably in bed w/ all webster in reach. VSS BP 146/82 HR 75 POX 98% RA. AOx4 mild expressive aphasia, heart sounds audible, lungs clear bilaterally, bowel sounds normoactive, voiding clear melina
urine, radial and pedal pulses present bilaterally, right wrist TR band to 6 cc w/ scant old drainage, strength equal bilaterally, 20g right forearm PIV patent and intact.
[2024-03-25] MEDS: KCL 20 MEQ PO (20:06)
[2024-03-25] MEDS: LIPITOR 80 MG PO (20:58)
[2024-03-26] VITALS (8 sets, daily range): BP systolic 114–132; BP diastolic 58–77; BMI 22.8
--- NOTE | 2024-03-26 00:07 | PTCARENOTE ---
Assessment unchanged. VSS BP 123/71 HR 79 POX 96% RA. Patient sleeping comfortably w/ call webster in reach.
--- NOTE | 2024-03-26 04:16 | PTCARENOTE ---
Assessment unchanged. VSS BP 118/77 HR 69 POX 93% RA. Patient TR band removed. Patient resting comfortably w/ call webster in reach.
[2024-03-26 04:29] LABS: Hematocrit 34.3 % (39.0-52.0); Hemoglobin 12.2 g/dL (13.0-18.0); Mean Corp Hgb Conc. 35.6 g/dL (33.0-37.0); Mean Corpuscular Hgb 31.2 pg (27.0-31.0); Mean Corpuscular Volume 87.7 fL (80.0-94.0); Mean Platelet Volume 10.1 fL (7.4-10.4); Platelet Count 240 10^3/uL (130-400); Red Blood Cell Count 3.91 10^6/uL (4.70-6.10); Red Cell Dist. Width 12.5 % (11.5-14.5); White Blood Cell Count 7.5 10^3/uL (4.8-10.8)
[2024-03-26 05:01] LABS: Blood Urea Nitrogen 16 mg/dl (9-20); Calcium 8.4 mg/dl (8.4-10.2); Carbon Dioxide 22 mmol/L (22-30); Chloride 107 mmol/L (98-107); Estimated Creatinine Clearance 64 ml/min; Glucose 126 mg/dl (70-99); HDL Cholesterol 52 mg/dl; LDL Cholesterol, Calculated 34 mg/dl; Sodium 135 mmol/L (135-145); Total Cholesterol 98 mg/dl (50-199); Triglyceride 63 mg/dl (10-149); Very Low Density Lipoprotein 12 mg/dl (0-30); eGFR > 60.00
[2024-03-26 05:07] LABS: Potassium 3.6 mmol/L (3.5-5.1)
--- NOTE | 2024-03-26 08:40 | PTCARENOTE ---
Assumed care of patient. Walking rounds completed with previous RN. Pt assessed while he was sitting in the chair. Pt alert and oriented x4. Denies pain, shortness of breath, and nausea. NAVA with equal strength throughout. Ambulates independently in
the room. NSR on tele with rates in the 80s. BP 122/68. Bilateral radial and DP pulses palpable. No edema noted. POX 98% on RA. Lungs clear throughout. Occasional dry nonproductive cough noted. Abdomen soft, nontender. +BS. Pt voiding yellow urine
in the urinal, reports no issues. Right radial cath site approximated, soft, nontender. Right forearm 20g PIV intact. See MAR for medication administration. See worklist for complete nursing assessment. Plan of care reviewed and patient in agreement.
[2024-03-26] MEDS: LOW STRENGTH ASPIRIN 81 MG PO (08:42)
[2024-03-26] MEDS: KCL 40 MEQ PO (08:42)
[2024-03-26] MEDS: BRILINTA 90 MG PO ×2 (08:42→19:45)
[2024-03-26] MEDS: PROTONIX 40 MG PO (08:42)
[2024-03-26] MEDS: NORVASC 5 MG PO (08:42)
--- NOTE | 2024-03-26 08:46 | W.PN.CARDCBS ---
Addendum entered and electronically signed by Sully Villalobos MD 03/26/24 17:27:
I saw and examined the patient.
The Bulldozer/Loader/Compactor/Scraper's note was reviewed and I agree with the note.
Comment: Patient is doing well and does not offer any complaints. He is out of bed in chair. No chest discomfort or shortness of breath.
Vital signs and lab work reviewed. On exam patient is well-appearing, no acute distress, out of bed in chair, awake, alert and oriented x 3, regular rate, normal S1 and S2, no JVD, lungs are clear to auscultation bilaterally, radial site with very
small subcutaneous hematoma but good pulses and no bruit, abdomen is soft, nontender, nondistended with active bowel sounds, warm extremities without significant edema
Recommendations:
1. Continue monitoring on telemetry for another 24 hours.
2. Initiate low-dose Toprol-XL and attempts to optimize goal-directed medical therapy.
3. Uninterrupted dual antiplatelet therapy for recent PCI.
4. Ongoing discussions with cardiac surgery in regards to best management strategy for residual CAD.
Discussed all of the above with patient.
Sully Villalobos MD, [facility], [facility]
Original Note:
Today's Communication / Plan
-
Adding Toprol XL 25 mg daily
IVU ordered
Impression / Plan
-
PCP: Dr. Son Carrillo
Cardiology: Dr. Reynolds
Impression:
Admitted with chest pain and late presentation of [place] 03/25/24
NSTEMI, peak Troponin 102
CAD
s/p [place] 4.0 mm GREG to proximal RCA 03/25/2024
Residual CAD with 70% distal LM by cath 03/25/24
EF 50-55% by echo 03/25/24
HTN
h/o acute frontal lobe CVA 02/10/24
Hyperlipidemia
GERD
Echo 03/25/2024: EF 50 to 55% with inferior and inferolateral hypokinesis to akinesis, normal RV size and function, no significant valve disease
Plan:
-Patient came to ER 03/25/2024 with chest pain that had started the day before but had resolved hours prior to admission and the patient's rationale was that his is getting ready to leave on a trip and it was felt that he should have his
chest pain evaluated prior to her leaving. In the ER his ECG was markedly abnormal and initial troponin was in the 40s and then peaked at 102 before trending down. Patient had urgent echo that showed inferior and inferolateral hypokinesis to
akinesis and he was taken for urgent cath where he was found to have a 90% proximal RCA lesion that was stented and has residual 70% distal LM disease.
-ECG from 03/26/24 reviewed by me with SR and inferior ST changes
-Troponin peaked at 102. No recurrence of chest pain.
-Outpatient dose of aspirin 81 mg dialy continued and new to Brilinta 90 mg BID. Appreciate help of CM on checking cost of Brilinta. Patient can use a 30-day free card and asked to meet a $590 deductible and would then be responsible for 24% of the
cost on a monthly basis moving forward.
-Will add Toprol XL 25 mg daily
-Will try to add lisinopril in the AM
-Outpatient dose of amlodipine 5 mg daily has been continued.
-LDL 34 and outpatient dose of atorvastatin 80 mg daily has been continued
-Cardiac rehab consulted
-CT surgery consulted for residual LM disease and plan is for patient to see CT surgeon in the office in 2-3 weeks to discuss options.
Progress Note - Engineering Consultant
Subjective
Date of Service: March 26, 2024
No recurrence of CP
Objective
Labs:
03/26/24 04:10
03/26/24 04:10
Labs
Hgb 12.2 g/dL (13.0-18.0) L 03/26/24 04:10
Hct 34.3 % (39.0-52.0) L 03/26/24 04:10
Plt Count 240 10^3/uL (130-400) 03/26/24 04:10
APTT 32.8 Sec (23.4-35.0) 03/25/24 15:35
Sodium 135 mmol/L (135-145) 03/26/24 04:10
Potassium 3.6 mmol/L (3.5-5.1) 03/26/24 04:10
BUN 16 mg/dl (9-20) 03/26/24 04:10
Creatinine 1.0 mg/dL (0.7-1.3) 03/26/24 04:10
Glucose 126 mg/dl (70-99) H 03/26/24 04:10
Troponins
03/25/24 03/25/24 03/26/24
15:35 22:17 04:10
Troponin I 43.400 H* 102.000 H* D 66.000 H* D
03/26/24
10:00
Troponin I Cancelled
Vital Signs and I&O:
Vital Signs
Temp Pulse Resp BP Pulse Ox
98.7 F 77 16 118/77 92
03/26/24 04:06 03/26/24 07:00 03/26/24 04:06 03/26/24 04:00 03/26/24 04:06
Vital Signs
Temp Pulse Resp BP Pulse Ox
98.7 F 77 16 118/77 92
03/26/24 04:06 03/26/24 07:00 03/26/24 04:06 03/26/24 04:00 03/26/24 04:06
Intake & Output
03/24/24 03/25/24 03/26/24 03/27/24
06:59 06:59 06:59 06:59
Output Total 550 / 550
Balance -550 / -550
Physical Exam
Physical Exam
GEN: AAOx3
HEENT: mmm
LUNGS: RA. No audible wheeze
CV: SR on tele
ABD: ND
EXT: No edema B/L
NEURO: Gross non-focal
SKIN: No rash
--- NOTE | 2024-03-26 11:45 | PTCARENOTE ---
Pt reassessed. No acute changes. NSR with rates in the 60s. BP 132/76. POX 99% on RA. Right radial site unchanged. Voiding independently in the bathroom, reports no concerns.
--- NOTE | 2024-03-26 12:09 | CM ---
Chart reviewed. Patient is independent of ADLS, lives with his in a 2 STH, 15 MAGDALENA in the front and 1 MAGDALENA in the back, 0 DME. Plan is for the patient to return home. CM to follow
--- NOTE | 2024-03-26 12:10 | CM ---
Pricing on Brilinta through the patient's [employer], ID # [id number] # [phone], is $468.87 for the first month. The patient has a $590 deductible he needs to meet first and then the patient is responsible for 24% of cost. Patient is
agreeable. It is not in stock at the patient's [facility], but if you order it today it will be in tomorrow. I notified Glendy Ovalle. Patient is agreeable to cost. I placed a free 30 day coupon in the patient's red discharge folder.
[2024-03-26] MEDS: TOPROL XL 25 MG PO (15:09)
--- NOTE | 2024-03-26 15:14 | PTCARENOTE ---
Pt reassessed. NSR with 1st degree AVB on tele with rates in the 60s. BP 114/65. POX 99% on RA. Right radial cath site unchanged. Resting in bed at this time.
--- NOTE | 2024-03-26 18:49 | W.PN.UPDATE ---
Update Note
Progress Note Update
Patient was set up for a follow up with Dr. Power to discuss CT surgery options. Appointment is in discharge instructions.
--- NOTE | 2024-03-26 20:00 | PTCARENOTE ---
Received pt from [facility]. pt resting comfortably in bed, AAOx4, denies pain. NSR on monitor, VSS. heart sounds audible, radial and DP pulses palpable, no edema noted. lungs clear, spo2 96% on RA. +BS x4 quadrants, abdomen, soft non tender. pt
voiding clear yellow urine. right radial cath site maintained. PIV maintained. plan is for discharge tomorrow, 03/27. call webster within reach will continue to monitor.
[2024-03-26] MEDS: LIPITOR 80 MG PO (21:38)
--- NOTE | 2024-03-27 | PTCARENOTE ---
Pt assessment unchanged. NSR on monitor. VSS. pt resting comfortably in bed.
[2024-03-27 00:35] VITALS: BP 118/56
--- NOTE | 2024-03-27 04:00 | PTCARENOTE ---
Pt assessment unchanged. NSR on monitor. VSS.
[2024-03-27 04:31] VITALS: BP 118/65
[2024-03-27 06:29] VITALS: BMI 22.9
--- NOTE | 2024-03-27 07:48 | W.PN.CARDCBS ---
Addendum entered and electronically signed by Sully Villalobos MD 03/27/24 17:12:
I saw and examined the patient.
The Senior Designer/Art Director's note was reviewed and I agree with the note.
Comment: Patient is doing well and does not offer any complaints. He is out of bed in chair. No chest discomfort or shortness of breath. He has been ambulating the halls without any difficulty.
Vital signs and lab work reviewed. On exam patient is well-appearing, no acute distress, out of bed in chair, awake, alert and oriented x 3, regular rate, normal S1 and S2, no JVD, lungs are clear to auscultation bilaterally, radial site with very
small subcutaneous hematoma but good pulses and no bruit, abdomen is soft, nontender, nondistended with active bowel sounds, warm extremities without significant edema
Recommendations:
1. Uninterrupted dual antiplatelet therapy for recent PCI in the setting of ACS..
2. Tolerating low-dose Toprol well. Continue aspirin and high intensity statin along with lisinopril.
3. Stable for discharge from a cardiac standpoint. Patient will be set up to see CT surgery as well as cardiology for ongoing heart team discussions in regards to best management strategy for residual CAD.
Discussed all of the above with patient and stepdaughter at bedside.
Sully Villalobos MD, [facility], [facility]
Addendum entered and electronically signed by Melodie Martinez PA-C 03/27/24 11:20:
Labs are reviewed by ky 03/27/2024 shows stable hemoglobin at 12.3 compared to 12.2 yesterday. Creatinine stable at 1.2. Potassium stable at 4.1. Overall patient is stable for discharge to home and new medications already E scribed. Will place
discharge order.
Original Note:
Today's Communication / Plan
-
Likely d/c to home later today if labs stable
Impression / Plan
-
PCP: Dr. Son Carrillo
Cardiology: Dr. Rodolfo
Impression:
Admitted with chest pain and late presentation of [place] 03/25/24
NSTEMI, peak Troponin 102
CAD
s/p [place] 4.0 mm GREG to proximal RCA 03/25/2024
Residual CAD with 70% distal LM by cath 03/25/24
EF 50-55% by echo 03/25/24
HTN
h/o acute frontal lobe CVA 02/10/24
Hyperlipidemia
GERD
Echo 03/25/2024: EF 50 to 55% with inferior and inferolateral hypokinesis to akinesis, normal RV size and function, no significant valve disease
Plan:
-Uneventful night. CBC and BMP ordered for 03/27/24 AM.
-Patient came to ER 03/25/2024 with chest pain that had started the day before but had resolved hours prior to admission and the patient's rationale was that his is getting ready to leave on a trip and it was felt that he should have his
chest pain evaluated prior to her leaving. In the ER his ECG was markedly abnormal and initial troponin was in the 40s and then peaked at 102 before trending down. Patient had urgent echo that showed inferior and inferolateral hypokinesis to
akinesis and he was taken for urgent cath where he was found to have a 90% proximal RCA lesion that was stented and has residual 70% distal LM disease.
-Troponin peaked at 102. No recurrence of chest pain.
-Outpatient dose of aspirin 81 mg daily continued
-New to Brilinta 90 mg BID. Appreciate help of CM on checking cost of Brilinta. Patient can use a 30-day free card and asked to meet a $590 deductible and would then be responsible for 24% of the cost on a monthly basis moving forward.
-New to Toprol XL 25 mg daily. BP and HR stable
-Will try adding lisinopril 2.5 mg daily 03/27/24
-Outpatient dose of amlodipine 5 mg daily now on hold to allow for addition of JAYY
-LDL 34 and outpatient dose of atorvastatin 80 mg daily has been continued
-Cardiac rehab consulted
-CT surgery consulted for residual LM disease and plan is for patient to see CT surgeon in the office in 2-3 weeks to discuss options.
-Pending labs patient will be stable for d/c to home 03/27/24
Progress Note - Documentation Manager
Subjective
Date of Service: March 27, 2024
Feels well, wants to go home
Objective
Labs:
03/26/24 04:10
03/26/24 04:10
Labs
Hgb 12.2 g/dL (13.0-18.0) L 03/26/24 04:10
Hct 34.3 % (39.0-52.0) L 03/26/24 04:10
Plt Count 240 10^3/uL (130-400) 03/26/24 04:10
APTT 32.8 Sec (23.4-35.0) 03/25/24 15:35
Sodium 135 mmol/L (135-145) 03/26/24 04:10
Potassium 3.6 mmol/L (3.5-5.1) 03/26/24 04:10
BUN 16 mg/dl (9-20) 03/26/24 04:10
Creatinine 1.0 mg/dL (0.7-1.3) 03/26/24 04:10
Glucose 126 mg/dl (70-99) H 03/26/24 04:10
Troponins
03/25/24 03/25/24 03/26/24
15:35 22:17 04:10
Troponin I 43.400 H* 102.000 H* D 66.000 H* D
03/26/24
10:00
Troponin I Cancelled
Vital Signs and I&O:
Vital Signs
Temp Pulse Resp BP Pulse Ox
98.2 F 65 16 118/65 92
03/27/24 04:57 03/27/24 04:31 03/27/24 04:57 03/27/24 04:31 03/27/24 04:57
Vital Signs
Temp Pulse Resp BP Pulse Ox
98.2 F 65 16 118/65 92
03/27/24 04:57 03/27/24 04:31 03/27/24 04:57 03/27/24 04:31 03/27/24 04:57
Intake & Output
03/25/24 03/26/24 03/27/24 03/28/24
06:59 06:59 06:59 06:59
Intake Total 240 / 240
Output Total 550 / 550
Balance -550 / -550 240 / 240
Physical Exam
Physical Exam
GEN: AAOx3
HEENT: mmm
LUNGS: RA. No audible wheeze
CV: SR on tele
ABD: ND
EXT: No edema B/L
NEURO: Gross non-focal
SKIN: No rash
[2024-03-27 08:13] VITALS: BP 125/74
[2024-03-27] MEDS: LOW STRENGTH ASPIRIN 81 MG PO (08:18)
[2024-03-27] MEDS: TOPROL XL 25 MG PO (08:18)
[2024-03-27] MEDS: PROTONIX 40 MG PO (08:19)
[2024-03-27] MEDS: NORVASC PO (08:19)
[2024-03-27] MEDS: BRILINTA 90 MG PO (08:19)
--- NOTE | 2024-03-27 08:25 | W.DS.TRANS ---
DC Summary - Extrusion Die Repairer
-
Discharge Instructions:
Discharge Diagnosis/Procedures Angioplasty and stent to Right Coronary artery,
residual distal left main disease
Diet Low Cholesterol
Activity Other activity
Driving Restrictions No driving for 24 hours
Bathing Restrictions OK to Shower
Blood Work -Check non-fasting blood work in 1-2 weeks
Other Services Cardiac Rehab
Instructions:
Stand-Alone Forms: DC Instructions- Cath/EP Lab
Changes to Home Medications: Yes
Discharge Medications:
DC Medications w/original date entered in [employer]
omeprazole 20 mg capsule,delayed release 20 mg PO DAILY Gastrointestinal Issue 02/07/24
aspirin 81 mg chewable tablet 81 mg PO DAILY Blood Clot Prevention/Tx 03/25/24
atorvastatin 80 mg tablet 80 mg PO HS High Cholesterol 03/25/24
cyanocobalamin (vitamin B-12) 1,000 mcg tablet 1,000 mcg PO DAILY Supplement 03/25/24
ticagrelor 90 mg tablet (Brilinta) 90 mg PO BID #60 tabs 03/26/24
lisinopril 2.5 mg tablet 2.5 mg PO DAILY Heart disease/condition #30 tabs 03/27/24
metoprolol succinate 25 mg tablet,extended release 24 hr 25 mg PO DAILY Heart disease/condition #30 tabs 03/27/24
Home Medication Changes
Amlodipine stopped
New to Brilinta, Toprol XL and lisinopril
Pending Results: No
--- NOTE | 2024-03-27 08:30 | PTCARENOTE ---
pt received from previous RN, oriented, OOB in chair. SR w/ 1st degree AVB on the monitor. pt denies CP or SOB. SBP 110-120s. palpable pulses, no edema. pt on RA, 95-97% POX. lungs clear. pt abdomen s/n, denies n/v. diet tolerated well. voids.
ambulates independently. R radial site BUCK. PIV. labs drawn as ordered. see worklist for VS, I&O, and assessment.
[2024-03-27 08:33] LABS: Hemoglobin 12.3 g/dL (13.0-18.0); Mean Corp Hgb Conc. 35.1 g/dL (33.0-37.0); Mean Corpuscular Hgb 31.1 pg (27.0-31.0); Mean Corpuscular Volume 88.4 fL (80.0-94.0); Mean Platelet Volume 10.2 fL (7.4-10.4); Platelet Count 242 10^3/uL (130-400); Red Blood Cell Count 3.96 10^6/uL (4.70-6.10); Red Cell Dist. Width 12.7 % (11.5-14.5); White Blood Cell Count 7.8 10^3/uL (4.8-10.8)
[2024-03-27 09:18] LABS: Blood Urea Nitrogen 23 mg/dl (9-20); Calcium 8.7 mg/dl (8.4-10.2); Carbon Dioxide 18 mmol/L (22-30); Chloride 108 mmol/L (98-107); Estimated Creatinine Clearance 53 ml/min; Glucose 119 mg/dl (70-99); Potassium 4.1 mmol/L (3.5-5.1); eGFR > 60.00
[2024-03-27] MEDS: ZESTRIL 2.5 MG PO (09:18)
[2024-03-27 09:20] VITALS: BP 116/63
[2024-03-27 09:25] LABS: Sodium 136 mmol/L (135-145)
--- NOTE | 2024-03-27 10:12 | CM ---
Chart reviewed. Patient is independent of ADLS, lives with his in a 2 STH, front 15 MAGDALENA, back 1 MAGDALENA, 0 DME. Plan is for the patient to return home. I followed up with the patient's [facility] and it is not going to be available, script
was sent to [facility] [employer] at [address] [facility] [address]. Patient is agreeable to go to the [facility].
[2024-03-27 11:57] VITALS: BP 138/68
--- NOTE | 2024-03-27 12:00 | PTCARENOTE ---
pt VSS, no changes in assessment.
--- NOTE | 2024-03-27 13:41 | PTCARENOTE ---
pt discharged home w/ . discharge instructions reviewed with patient and . IV and tele dc'd. lab script given. questions answered. pt dressed self. pt left floor via wheelchair w/ all belongings.
== END 2024-03-27 13:54 | disposition home or self-care (01) | DRG 322 ==
LOC: CVICU 13:55
PROVIDERS: Nurse Practitioner; Physician Assistant Medical; ADMITTING PHYSICIAN Internal Medicine Interventional Cardiology; ATTENDING PHYSICIAN Internal Medicine Cardiovascular Disease; EMERGENCY PHYSICIAN Emergency Medicine; FAMILY PHYSICIAN Family Medicine; OTHER PHYSICIAN Internal Medicine Cardiovascular Disease; OTHER PHYSICIAN Thoracic Surgery (Cardiothoracic Vascular Surgery)
PROC: 4A023N7 Measurement of Cardiac Sampling and Pressure, Left Heart, Percutaneous Approach (ICD-10-PCS; 2024-03-25)
PROC: B2111ZZ Fluoroscopy of Multiple Coronary Arteries using Low Osmolar Contrast (ICD-10-PCS; 2024-03-25)
PROC: 027034Z Dilation of Coronary Artery, One Artery with Drug-eluting Intraluminal Device, Percutaneous Approach (ICD-10-PCS; 2024-03-25)
DX: I21.4 Non-ST elevation (NSTEMI) myocardial infarction (principal); E78.00 Pure hypercholesterolemia, unspecified; I10 Essential (primary) hypertension; I25.10 Atherosclerotic heart disease of native coronary artery without angina pectoris; K21.9 Gastro-esophageal reflux disease without esophagitis; R13.10 Dysphagia, unspecified; E74.39 Other disorders of intestinal carbohydrate absorption; I69.820 Aphasia following other cerebrovascular disease; I69.818 Other symptoms and signs involving cognitive functions following other cerebrovascular disease; Z79.82 Long term (current) use of aspirin; Z79.899 Other long term (current) drug therapy; Z82.3 Family history of stroke
CPT/HCPCS: 93308; 80048; 80061; 83735; 84484; 85025; 85027; 85347; 85730; 93005; 93321; 93325; 93458; 96374; 99152; 99153; 99285; C1725; C1874; C1894; C9600; C9606

== ENCOUNTER 2024-04-26 08:41 | Outpatient (RCR) | payer OTHER, SELFPAY | END 2024-04-26 23:59 | disposition home or self-care (01) | LOC: RST 08:41 | PROVIDERS: ATTENDING PHYSICIAN Nurse Practitioner Adult Health; FAMILY PHYSICIAN Chiropractor | DX: I69.320 Aphasia following cerebral infarction (principal); I69.318 Other symptoms and signs involving cognitive functions following cerebral infarction; I69.328 Other speech and language deficits following cerebral infarction; R41.89 Other symptoms and signs involving cognitive functions and awareness; I69.314 Frontal lobe and executive function deficit following cerebral infarction; I69.310 Attention and concentration deficit following cerebral infarction; Z73.6 Limitation of activities due to disability | CPT/HCPCS: 92507; 97129; 97130; 97168; 97530; 97535; 97537 ==

== ENCOUNTER 2024-05-24 07:32 | Outpatient (RCR) | payer OTHER, SELFPAY | END 2024-05-24 23:59 | disposition home or self-care (01) | LOC: RST 07:32 | PROVIDERS: ATTENDING PHYSICIAN Family Medicine | DX: I69.320 Aphasia following cerebral infarction (principal); I69.328 Other speech and language deficits following cerebral infarction; R41.89 Other symptoms and signs involving cognitive functions and awareness; I69.318 Other symptoms and signs involving cognitive functions following cerebral infarction; I69.314 Frontal lobe and executive function deficit following cerebral infarction; I69.310 Attention and concentration deficit following cerebral infarction; Z73.6 Limitation of activities due to disability | CPT/HCPCS: 92507; 97129; 97130; 97530; 97535; 97537 ==

== ENCOUNTER 2024-05-27 16:09 | Outpatient (RCR) | payer OTHER, SELFPAY | END 2024-05-27 23:59 | disposition home or self-care (01) | LOC: CRHB 16:09 | PROVIDERS: ATTENDING PHYSICIAN Internal Medicine Cardiovascular Disease | DX: I25.10 Atherosclerotic heart disease of native coronary artery without angina pectoris (principal); Z95.5 Presence of coronary angioplasty implant and graft; I25.2 Old myocardial infarction | CPT/HCPCS: G0422; G0423 ==

== ENCOUNTER 2024-06-25 09:25 | Outpatient (RCR) | payer OTHER, SELFPAY | END 2024-06-25 23:59 | disposition home or self-care (01) | LOC: RST 09:25 | PROVIDERS: ATTENDING PHYSICIAN Family Medicine | DX: I69.320 Aphasia following cerebral infarction (principal); I69.318 Other symptoms and signs involving cognitive functions following cerebral infarction; I69.328 Other speech and language deficits following cerebral infarction; I69.314 Frontal lobe and executive function deficit following cerebral infarction; I69.310 Attention and concentration deficit following cerebral infarction; R41.89 Other symptoms and signs involving cognitive functions and awareness; Z73.6 Limitation of activities due to disability | CPT/HCPCS: 92507; 97129; 97130; 97530; 97537 ==

== ENCOUNTER 2024-06-26 08:57 | Outpatient (RCR) | payer OTHER, SELFPAY | END 2024-06-26 23:59 | disposition home or self-care (01) | LOC: CRHB 08:57 | PROVIDERS: ATTENDING PHYSICIAN Internal Medicine Cardiovascular Disease; FAMILY PHYSICIAN Family Medicine | DX: I21.01 ST elevation (STEMI) myocardial infarction involving left main coronary artery (principal); I25.2 Old myocardial infarction; Z95.5 Presence of coronary angioplasty implant and graft; I25.10 Atherosclerotic heart disease of native coronary artery without angina pectoris | CPT/HCPCS: G0422; G0423 ==

== ENCOUNTER 2024-07-12 09:24 | Outpatient (RCR) | payer OTHER, SELFPAY | END 2024-07-16 23:59 | disposition home or self-care (01) | LOC: RST 09:24 | PROVIDERS: ATTENDING PHYSICIAN Family Medicine | DX: I69.320 Aphasia following cerebral infarction (principal); I69.318 Other symptoms and signs involving cognitive functions following cerebral infarction; I69.328 Other speech and language deficits following cerebral infarction; I69.314 Frontal lobe and executive function deficit following cerebral infarction; I69.310 Attention and concentration deficit following cerebral infarction; R41.89 Other symptoms and signs involving cognitive functions and awareness; Z73.6 Limitation of activities due to disability | CPT/HCPCS: 92507; 97129; 97130; 97530; 97535; 97537 ==

== ENCOUNTER 2024-07-26 09:07 | Outpatient (RCR) | payer OTHER, SELFPAY | END 2024-07-26 23:59 | disposition home or self-care (01) | LOC: CRHB 09:07 | PROVIDERS: ATTENDING PHYSICIAN Internal Medicine Cardiovascular Disease; FAMILY PHYSICIAN Family Medicine | DX: I21.01 ST elevation (STEMI) myocardial infarction involving left main coronary artery (principal); Z95.5 Presence of coronary angioplasty implant and graft; I25.2 Old myocardial infarction; I25.10 Atherosclerotic heart disease of native coronary artery without angina pectoris | CPT/HCPCS: G0422; G0423 ==

== ENCOUNTER → 2024-08-14 09:30 | Outpatient (REF) | payer OTHER, SELFPAY ==
[2024-08-14 10:50] LABS: ALT (SGPT) 21 U/L (0-50); AST (SGOT) 25 U/L (17-59); Albumin 3.8 g/dl (3.5-5.0); Alkaline Phosphatase 95 U/L (38-126); Blood Urea Nitrogen 22 mg/dl (9-20); Calcium 9.5 mg/dl (8.4-10.2); Carbon Dioxide 18 mmol/L (22-30); Chloride 113 mmol/L (98-107); Glucose 119 mg/dl (70-99); Potassium 4.3 mmol/L (3.5-5.1); Sodium 139 mmol/L (135-145); Total Bilirubin 0.7 mg/dl (0.2-1.3); Total Protein 6.8 g/dl (6.3-8.2); eGFR > 60.00
[2024-08-14 11:13] LABS: Glycohemoglobin (HgbA1c) 6.4 % (4.0-5.6)
== END ==
LOC: REG 09:30
PROVIDERS: ATTENDING PHYSICIAN Chiropractor; FAMILY PHYSICIAN Family Medicine
DX: R73.9 Hyperglycemia, unspecified (principal); E78.2 Mixed hyperlipidemia
CPT/HCPCS: 80053; 83036

== ENCOUNTER 2024-08-21 08:41 | Outpatient (RCR) | payer OTHER, SELFPAY ==
[2024-08-14 10:47] LABS: HDL Cholesterol 60 mg/dl; LDL Cholesterol, Calculated 64 mg/dl; Total Cholesterol 137 mg/dl (50-199); Triglyceride 69 mg/dl (10-149); Very Low Density Lipoprotein 13 mg/dl (0-30)
== END 2024-08-21 17:21 | disposition home or self-care (01) ==
LOC: CRHB 08:41
PROVIDERS: ATTENDING PHYSICIAN Internal Medicine Cardiovascular Disease; FAMILY PHYSICIAN Family Medicine
DX: I21.01 ST elevation (STEMI) myocardial infarction involving left main coronary artery (principal); Z95.5 Presence of coronary angioplasty implant and graft; I25.2 Old myocardial infarction; I25.10 Atherosclerotic heart disease of native coronary artery without angina pectoris
CPT/HCPCS: 36415; 80061; G0422; G0423

== ENCOUNTER 2024-08-23 13:30 | Outpatient (RCR) | payer OTHER, SELFPAY | END 2024-08-23 23:59 | disposition home or self-care (01) | LOC: RST 13:30 | PROVIDERS: ATTENDING PHYSICIAN Family Medicine | DX: I69.320 Aphasia following cerebral infarction (principal); I69.318 Other symptoms and signs involving cognitive functions following cerebral infarction; I69.328 Other speech and language deficits following cerebral infarction; I69.314 Frontal lobe and executive function deficit following cerebral infarction; I69.310 Attention and concentration deficit following cerebral infarction; R41.89 Other symptoms and signs involving cognitive functions and awareness; Z73.6 Limitation of activities due to disability | CPT/HCPCS: 92507 ==

== ENCOUNTER 2024-09-17 10:11 | Outpatient (RCR) | payer OTHER, SELFPAY | END 2024-09-26 11:57 | disposition home or self-care (01) | LOC: RST 10:11 | PROVIDERS: ATTENDING PHYSICIAN Family Medicine | DX: I69.320 Aphasia following cerebral infarction (principal); I69.318 Other symptoms and signs involving cognitive functions following cerebral infarction; I69.328 Other speech and language deficits following cerebral infarction; I69.314 Frontal lobe and executive function deficit following cerebral infarction; I69.310 Attention and concentration deficit following cerebral infarction; R41.89 Other symptoms and signs involving cognitive functions and awareness; Z73.6 Limitation of activities due to disability | CPT/HCPCS: 92507 ==